=== PATIENT | male | born 1940 | race Caucasian/White ===

== ENCOUNTER 2017-08-23 06:47 | Outpatient (CLI) | payer MEDICARE | END 2017-08-23 06:48 | disposition home or self-care (01) | LOC: BICRAD 06:47 | PROVIDERS: ATTEND Family Medicine | DX: R06.00 Dyspnea, unspecified (principal) | CPT/HCPCS: 71046 ==

== ENCOUNTER 2018-11-12 12:56 | Outpatient (CLI) | payer MEDICARE ==
[~2018-11-12 12:56] MED LIST: ISOVUE-370 76%-LOCM 1 ML ONE
--- NOTE | 2018-11-12 14:15 | CT ---
CT ABDOMEN AND PELVIS WITH IV CONTRAST 11/12/2018 CLINICAL INFORMATION: Hematuria, bladder cancer. COMPARISON: CT abdomen and pelvis on 12/07/2011. Technique: Multiple contiguous axial CT images are obtained through the abdomen and pelvis with IV contrast. Cor onal reformatted images are provided. FINDINGS: Lower Chest: Tubular areas of increased density are seen in the right middle lobe posteriorly and lat erally which may be related to areas of mucus plugging. There are adjacent small reticulonodular densities suggesting infectious/inflammatory process. There are chronic bibasilar lung changes also p resent with increased interstitial densities noted. Vessels: Vascular calcifications are seen in the abdominal aorta and involving the iliac arteries. Abdomen: Portal vein:Patent Gallbladder: Few calcified lesions are seen in the gallbladder discovered bladder wall which may repr esent tiny gallbladder calculi; although, one of a calcification is may actually be related to tiny calcification within the wall of the gallbladder. Liver: within normal limits. Spleen: within normal limits. Pancreas: within normal limits. Adrenals: within normal limits. Kidneys: There are 2 exophytic fluid density cystic lesions involving the midportion and inferior candida e left kidney measuring 2.5 cm and 2.3 cm respectively compatible with cysts. A subcentimeter too small to characterize hypodense lesion is seen in the superior pole right kidney. A punctate calcific ation is seen in the left renal hilum which is thought to represent a vascular calcification as opposed to a renal calculus. No additional renal or ureteral calculi are seen bilaterally, and there is no evidence of hydronephrosis. Bowel: Normal caliber. Appendix: A tiny appendicolith is seen, but the appendix is normal in caliber without periappendiceal inflammatory changes Peritoneum: No ascites or free air; no fluid collection. Mesentery and Retroperitoneum: No enlarged mesenteric or retroperitoneal lymph nodes. Abdominal Wall: Tiny fat-containing umbilical hernia is present. Pelvis: Reproductive Organs: No pelvic masses. Pelvis within normal limits. Bladder: Incompletely distended but does demonstrate a normal CT appearance. No obvious mass or filli ng defect is appreciated within the urinary bladder on CT evaluation. Bones: A remote compression fracture of the L5 vertebral body is seen. Is also a remote compression f racture of the superior endplate of the T10 vertebral body stable when compared to study in 2012. Degenerative changes are again seen in the lumbar spine with stable area of increased density seen in the right superior endplate of the L2 vertebral body likely related to a bone island. IMPRESSION: 1. No acute findings are seen in the abdomen or pelvis. 2. Left renal cysts with 2 small to characterize hypodense lesion right kidney statistically also lik [place] representing a cyst.. 3. No renal or ureteral calculi are seen bilaterally, and there is no evidence of hydronephrosis. 4. Urinary bladder is incomplete distended but does demonstrate a grossly normal appearance on this e xamination. 5. Stable compression fractures involving the T10 and L5 vertebral bodies. 6. Stable sclerotic lesion L2 vertebral body likely due to a prominent bone island. No additional lyt ic or sclerotic osseous lesions are seen. 7. Cholelithiasis. 8. Probable areas of mucous plugging within the right middle lobe with adjacent reticulonodular densi ties which may related to associated infectious or inflammatory process.
== END 2018-11-12 12:57 | disposition home or self-care (01) ==
LOC: BICCT 12:56
PROVIDERS: ATTEND Urology
DX: C67.9 Malignant neoplasm of bladder, unspecified (principal); R31.9 Hematuria, unspecified; N28.1 Cyst of kidney, acquired; K80.20 Calculus of gallbladder without cholecystitis without obstruction; N32.89 Other specified disorders of bladder; R93.422 Abnormal radiologic findings on diagnostic imaging of left kidney; M89.9 Disorder of bone, unspecified; S22.079A Unspecified fracture of T9-T10 vertebra, initial encounter for closed fracture; S32.059A Unspecified fracture of fifth lumbar vertebra, initial encounter for closed fracture
CPT/HCPCS: 74178; Q9966

== ENCOUNTER 2019-01-09 08:54 | Outpatient (CLI) | payer MEDICARE ==
--- NOTE | 2019-01-09 12:58 | CT ---
CT CHEST WITH IV CONTRAST: HISTORY: Mucus plugging. Abnormal chest finding on CT abdomen. COMPARISON: CT abdomen from 11/12/2018. FINDINGS: Lungs are diffusely hyperinflated with scattered moderate bullae, predominantly peripherally and more prominent in the left upper lobes. Mild dependent bibasilar atelectasis with scattered areas of mil d peripheral scarring. No dominant parenchymal mass. No pleural fluid or pneumothorax. Within the lateral aspect of the right middle lobe, the area of abnormality on recent CT is again dem onstrated. Mild ground-glass opacity surrounds tiny multinodular focus. No enlarged lymph nodes within the mediastinum. There is calcifications throughout the arterial stru ctures. Findings of the upper abdomen are better detailed on recent CT abdomen exam. IMPRESSION: 1. Small multinodular parenchymal opacity with surrounding ground-glass density in the lateral segme nt right middle lobe. Most likely related to recurrent or old inflammatory process. Please consider followup CT chest in 9-12 months to evaluate for stability/resolution rather than any progression. 2. Atherosclerosis. 3. Emphysema. POS: [facility]
[2019-01-09] MEDS ORDERED: ISOVUE-370 76%-LOCM 1 ML ONE (16:12)
== END 2019-01-09 08:55 | disposition home or self-care (01) ==
LOC: BICCT 08:54
PROVIDERS: ATTEND Family Medicine
DX: R93.5 Abnormal findings on diagnostic imaging of other abdominal regions, including retroperitoneum (principal); J98.4 Other disorders of lung; J43.9 Emphysema, unspecified; I70.90 Unspecified atherosclerosis; R91.8 Other nonspecific abnormal finding of lung field
CPT/HCPCS: 71260; 82565; Q9966

== ENCOUNTER 2021-06-24 02:10 | Inpatient (IN) | payer OTHER, MEDICARE ==
[2021-06-24] MEDS ORDERED: Morphine 4 MG/ML VIAL ONE ×2 (03:05→09:37)
[2021-06-24] MEDS ORDERED: Ondansetron PF 4 MG/2 ML Vial ONE ×2 (03:05→10:30)
[2021-06-24] MEDS ORDERED: Dextrose 5% in Water 1,000 ML IV PRN ×2 (03:21→03:40)
[2021-06-24] MEDS ORDERED: hydrALAZINE 20 MG/ML VIAL SLOW IVP PRN (03:21)
[2021-06-24] MEDS ORDERED: Dextrose 50% Abboject 50 ML SYRINGE SLOW IVP PRN ×2 (03:21→03:40)
[2021-06-24] MEDS ORDERED: Acetaminophen 325 MG TAB PO PRN (03:21)
[2021-06-24] MEDS ORDERED: Ondansetron PF 4 MG/2 ML Vial IVP PRN ×2 (03:21→12:01)
[2021-06-24] MEDS ORDERED: Ibuprofen 200 MG TAB PO PRN (03:27)
[2021-06-24] MEDS ORDERED: Morphine 4 MG/ML VIAL SLOW IVP PRN (03:29)
[2021-06-24] MEDS ORDERED: Sodium Chloride 0.9% 1,000 ML IV SCH ×2 (03:30→18:00)
[2021-06-24 03:56] LABS: #Lymphocytes 1.9 thou/uL (1.20-3.40); #Monocytes 1.3 thou/uL (0.11-0.59); #Neutrophils 12.6 thou/uL (1.40-6.50); %Basophils 0.1 % (0.0-1.0); %Eosinophils 0.2 % (0.0-10.0); %Lymphocytes 11.7 % (21.0-51.0); %Monocytes 8.2 % (0.0-10.0); %Neutrophils 79.8 % (42.0-75.0); Hemoglobin 12.9 g/dL (14.0-18.0); Mean Corpuscular HGB CONC 34.5 g/dL (32.0-36.0); Mean Corpuscular Hemoglobin 31.9 pg (27.0-31.0); Mean Corpuscular Volume 92.6 fL (78.0-98.0); Mean Platelet Volume 8.2 fL (7.4-10.4); Platelet Count 160 thou/uL (130-400); RBC Distribution Width 12.8 % (11.5-14.5); Red Blood Cell (RBC) Count 4.05 mill/uL (4.70-6.10); White Blood Cell (WBC) Count 15.8 thou/uL (4.8-10.8)
[2021-06-24 04:09] LABS: INR-International Normal Ratio 1.1; PTT 32.6 sec (22.9-36.1); Prothrombin Time 14.1 sec (12.0-14.7)
[2021-06-24 04:20] LABS: ALT (SGPT) 34 U/L (8-55); AST (SGOT) 24 U/L (5-34); Albumin 3.8 g/dL (3.4-4.8); Alkaline Phosphatase 50 U/L (40-110); Anion Gap 16 mmol/L (10-20); BUN (Urea Nitrogen) 24 mg/dL (8.4-25.7); Bilirubin, Total 1.3 mg/dL (0.2-1.2); Calc. Creatinine Clearance 0 mL/min (70-130); Carbon Dioxide 20 mmol/L (23-31); Chloride 105 mmol/L (98-107); Globulin 2.8 g/dL (2.4-3.5); Glucose 251 mg/dL (83-110); Potassium 4.3 mmol/L (3.5-5.1); Protein, Total 6.6 g/dL (5.8-8.1); Sodium 137 mmol/L (136-145)
[2021-06-24 05:44] LABS: SARS-CoV-2 NAA Rapid Test Not Detected (NotDetected)
[2021-06-24] MEDS ORDERED: Acetaminophen 500 MG TAB PO SCH (06:00)
[2021-06-24] MEDS: Acetaminophen/Codeine 30-300mg Tablet PO SCH ×4 (06:12→23:04)
[2021-06-24] MEDS: HumaLOG 300 UNITS/3 ML VIAL SC PRN ×3 (06:12→21:44)
[2021-06-24] MEDS: Acetaminophen 325 MG TAB PO SCH ×4 (06:38→21:42)
[2021-06-24 07:21] VITALS: BMI 23.6
[2021-06-24] MEDS ORDERED: ceFAZolin 2 GM/Dextrose 50 ML 2 GM in Premix Bag 1 BAG IVPB SCH (07:30)
[2021-06-24 09:18] LABS: Hemoglobin A1c 7.4 % (4.0-6.0)
[2021-06-24] MEDS: Polyethylene Glycol 3350 17 GM Packet PO SCH (09:38)
[2021-06-24] MEDS: Senokot S 8.6-50 MG TAB PO SCH ×2 (09:39→21:42)
[2021-06-24] MEDS ORDERED: Midazolam HCl 2 mg/2 ml Vial ONE (09:53)
[2021-06-24] MEDS ORDERED: ceFAZolin 2 GM/Dextrose 50 ML IVPB ONE (10:23)
[2021-06-24] MEDS ORDERED: Bupivacaine HCl 0.5%/Epinephrine 1:200,000/PF 30 ml Vial ONE (10:27)
[2021-06-24] MEDS ORDERED: Rocuronium Bromide 10 MG/ML (10ML VIAL) ONE (10:30)
[2021-06-24] MEDS ORDERED: Glycopyrrolate 0.2 MG/ML 5 ML SYRINGE ONE (10:30)
[2021-06-24] MEDS ORDERED: ePHEDrine 50 MG/ML VIAL ONE (10:30)
[2021-06-24] MEDS ORDERED: PROPOFOL 200 MG/20 ML VIAL ONE (10:30)
[2021-06-24] MEDS ORDERED: Lidocaine 1% PF 5 ML VIAL ONE (10:30)
[2021-06-24] MEDS ORDERED: Esmolol 100 MG/10 ML VIAL ONE (10:30)
[2021-06-24] MEDS ORDERED: traMADol HCl 50 MG TAB PO PRN (12:01)
[2021-06-24] MEDS ORDERED: Zolpidem Tartrate 5 MG TAB PO PRN (12:01)
[2021-06-24] MEDS ORDERED: Promethazine HCl 25 MG/ML VIAL IM PRN (12:01)
[2021-06-24] MEDS ORDERED: ROPIVACAINE 0.2% NERVE BLCK SCH (12:15)
[2021-06-24] MEDS ORDERED: PUMP NERVE BLCK SCH (12:15)
[2021-06-24] MEDS: ceFAZolin 2 GM/Dextrose 50 ML 2 GM in Premix Bag 1 BAG IVPB SCH ×2 (13:13→21:51)
[2021-06-24] MEDS ORDERED: glipiZIDE 10 MG TAB PO SCH (17:45)
[2021-06-24] MEDS ORDERED: Ketorolac Tromethamine 30 MG/ML VIAL IVP PRN (17:54)
[2021-06-24] MEDS ORDERED: Ketorolac Tromethamine 30 MG/ML VIAL IVP SCH (18:00)
[2021-06-24] MEDS ORDERED: Lantus 1000 UNITS/10 ML VIAL SC SCH (21:00)
[2021-06-24] MEDS: Tamsulosin HCl 0.4 MG CAP PO SCH (21:42)
[2021-06-24] MEDS: Fenofibrate Nanocrystallized 145 MG TAB PO SCH (21:42)
[2021-06-24] MEDS: Atorvastatin Calcium 10 MG TAB PO SCH (21:42)
[2021-06-25] MEDS: Acetaminophen 325 MG TAB PO SCH ×4 (03:03→20:47)
[2021-06-25 05:18] LABS: #Eosinphils 0.1 thou/uL (0.0-0.7); #Lymphocytes 1.7 thou/uL (1.20-3.40); #Monocytes 1.7 thou/uL (0.11-0.59); #Neutrophils 12.3 thou/uL (1.40-6.50); %Basophils 0.2 % (0.0-1.0); %Eosinophils 0.6 % (0.0-10.0); %Lymphocytes 10.9 % (21.0-51.0); %Monocytes 10.7 % (0.0-10.0); %Neutrophils 77.6 % (42.0-75.0); Hemoglobin 10.5 g/dL (14.0-18.0); Mean Corpuscular HGB CONC 33.6 g/dL (32.0-36.0); Mean Corpuscular Hemoglobin 31.6 pg (27.0-31.0); Platelet Count 124 thou/uL (130-400); RBC Distribution Width 12.9 % (11.5-14.5); Red Blood Cell (RBC) Count 3.33 mill/uL (4.70-6.10); White Blood Cell (WBC) Count 15.8 thou/uL (4.8-10.8)
[2021-06-25] MEDS: HumaLOG 300 UNITS/3 ML VIAL SC PRN ×5 (05:34→20:48)
[2021-06-25] MEDS: Acetaminophen/Codeine 30-300mg Tablet PO SCH ×4 (05:34→23:41)
[2021-06-25 05:39] LABS: Anion Gap 10 mmol/L (10-20); BUN (Urea Nitrogen) 27 mg/dL (8.4-25.7); Calc. Creatinine Clearance 48 mL/min (70-130); Calcium 8.4 mg/dL (7.8-10.44); Carbon Dioxide 24 mmol/L (23-31); Chloride 103 mmol/L (98-107); Glucose 207 mg/dL (83-110); Magnesium 1.9 mg/dL (1.6-2.6)
[2021-06-25 05:41] LABS: Sodium 133 mmol/L (136-145)
[2021-06-25] MEDS: glipiZIDE 10 MG TAB PO SCH ×2 (06:50→15:48)
[2021-06-25] MEDS: Polyethylene Glycol 3350 17 GM Packet PO SCH (08:03)
[2021-06-25] MEDS: Senokot S 8.6-50 MG TAB PO SCH ×2 (08:03→20:05)
[2021-06-25] MEDS: Sodium Chloride 0.9% 500 ML IV SCH ×2 (08:03→09:57)
[2021-06-25] MEDS: Aspirin 81 mg Enteric Coated Tablet PO SCH ×2 (08:03→20:04)
[2021-06-25] MEDS: Lisinopril 10 MG TAB PO SCH ×3 (08:03→14:32)
[2021-06-25] MEDS: Lantus 1000 UNITS/10 ML VIAL SC SCH ×2 (08:04→20:05)
[2021-06-25] MEDS ORDERED: Lantus 1000 UNITS/10 ML VIAL SC SCH (09:00)
[2021-06-25] MEDS ORDERED: Famotidine 20 MG TAB PO SCH (15:00)
[2021-06-25] MEDS: Cyclobenzaprine 10 MG TAB PO PRN (15:52)
[2021-06-25] MEDS: Fenofibrate Nanocrystallized 145 MG TAB PO SCH (20:04)
[2021-06-25] MEDS: Tamsulosin HCl 0.4 MG CAP PO SCH (20:04)
[2021-06-25] MEDS: Atorvastatin Calcium 10 MG TAB PO SCH (20:05)
[2021-06-26] MEDS: Acetaminophen 325 MG TAB PO SCH ×3 (03:40→17:04)
[2021-06-26] MEDS: Acetaminophen/Codeine 30-300mg Tablet PO SCH ×3 (05:29→17:39)
[2021-06-26] MEDS: HumaLOG 300 UNITS/3 ML VIAL SC PRN ×3 (06:15→17:39)
[2021-06-26] MEDS: glipiZIDE 10 MG TAB PO SCH ×2 (06:41→17:03)
[2021-06-26] MEDS: Ibuprofen 200 MG TAB PO PRN ×2 (08:58→20:12)
[2021-06-26] MEDS: Cyclobenzaprine 10 MG TAB PO PRN (08:59)
[2021-06-26] MEDS: Senokot S 8.6-50 MG TAB PO SCH ×2 (09:01→20:14)
[2021-06-26] MEDS: Lisinopril 10 MG TAB PO SCH (09:01)
[2021-06-26] MEDS: Polyethylene Glycol 3350 17 GM Packet PO SCH (09:02)
[2021-06-26] MEDS: Lantus 1000 UNITS/10 ML VIAL SC SCH ×2 (09:16→20:17)
[2021-06-26] MEDS: Aspirin 81 mg Enteric Coated Tablet PO SCH ×2 (09:25→20:12)
[2021-06-26 10:07] LABS: Anion Gap 10 mmol/L (10-20); BUN (Urea Nitrogen) 20 mg/dL (8.4-25.7); Calc. Creatinine Clearance 64 mL/min (70-130); Calcium 8.2 mg/dL (7.8-10.44); Carbon Dioxide 19 mmol/L (23-31); Chloride 105 mmol/L (98-107); Glucose 195 mg/dL (83-110); Magnesium 1.9 mg/dL (1.6-2.6); Phosphorus 2.3 mg/dL (2.3-4.7); Potassium 4.2 mmol/L (3.5-5.1); Sodium 130 mmol/L (136-145)
[2021-06-26] MEDS ORDERED: Sodium Phosphate 30 MMOL in Sodium Chloride 0.9% 250 ML 250 ML IVPB SCH (10:30)
[2021-06-26] MEDS: Famotidine 20 MG TAB PO SCH (20:08)
[2021-06-26] MEDS: Atorvastatin Calcium 10 MG TAB PO SCH (20:12)
[2021-06-26] MEDS: cloNIDine 0.1 MG TAB PO SCH (20:12)
[2021-06-26] MEDS: Tamsulosin HCl 0.4 MG CAP PO SCH (20:14)
[2021-06-26] MEDS: Fenofibrate Nanocrystallized 145 MG TAB PO SCH (20:16)
[2021-06-27] MEDS: Acetaminophen/Codeine 30-300mg Tablet PO SCH ×5 (01:28→23:25)
[2021-06-27] MEDS: Acetaminophen 325 MG TAB PO SCH ×5 (01:28→23:24)
[2021-06-27] MEDS: cloNIDine 0.1 MG TAB PO SCH ×3 (05:41→18:05)
[2021-06-27] MEDS: Aspirin 81 mg Enteric Coated Tablet PO SCH ×2 (07:52→23:15)
[2021-06-27] MEDS: Lisinopril 10 MG TAB PO SCH (07:52)
[2021-06-27] MEDS: Famotidine 20 MG TAB PO SCH ×2 (07:52→23:15)
[2021-06-27] MEDS: Senokot S 8.6-50 MG TAB PO SCH ×2 (07:52→23:15)
[2021-06-27] MEDS: glipiZIDE 10 MG TAB PO SCH ×2 (07:52→16:26)
[2021-06-27] MEDS: Polyethylene Glycol 3350 17 GM Packet PO SCH (08:36)
[2021-06-27] MEDS: HumaLOG 300 UNITS/3 ML VIAL SC PRN ×2 (11:13→16:28)
[2021-06-27] MEDS: Fenofibrate Nanocrystallized 145 MG TAB PO SCH (23:15)
[2021-06-27] MEDS: Lantus 1000 UNITS/10 ML VIAL SC SCH (23:16)
[2021-06-27] MEDS: Tamsulosin HCl 0.4 MG CAP PO SCH (23:16)
[2021-06-27] MEDS: Atorvastatin Calcium 10 MG TAB PO SCH (23:16)
[2021-06-28] MEDS: cloNIDine 0.1 MG TAB PO SCH ×2 (04:10→12:00)
[2021-06-28] MEDS: Acetaminophen/Codeine 30-300mg Tablet PO SCH ×2 (05:11→12:01)
[2021-06-28] MEDS: Acetaminophen 325 MG TAB PO SCH ×2 (05:11→12:01)
[2021-06-28] MEDS: HumaLOG 300 UNITS/3 ML VIAL SC PRN ×2 (06:02→12:00)
[2021-06-28] MEDS: Aspirin 81 mg Enteric Coated Tablet PO SCH (08:15)
[2021-06-28] MEDS: Senokot S 8.6-50 MG TAB PO SCH (08:15)
[2021-06-28] MEDS: Lisinopril 10 MG TAB PO SCH (08:15)
[2021-06-28] MEDS: Polyethylene Glycol 3350 17 GM Packet PO SCH (08:16)
[2021-06-28] MEDS: glipiZIDE 10 MG TAB PO SCH (08:16)
[2021-06-28] MEDS: Famotidine 20 MG TAB PO SCH (08:16)
[2021-06-28] MEDS ORDERED: Lidocaine 5% Patch TD SCH (09:00)
[2021-06-28 12:02] VITALS: BP 138/51
[2021-06-28 12:06] VITALS: TEMP 98
[2021-06-28] MEDS ORDERED: Gabapentin 300 MG CAP PO SCH (15:00)
[2021-06-28] MEDS ORDERED: Transdermal Patch Removal TOP SCH (21:00)
== END 2021-06-28 12:35 | DRG 522 ==
LOC: ERS 02:10 → SJJU 03:16
PROVIDERS: ADMIT Specialist; ATTEND Specialist
PROC: 0SRR0JA Replacement of Right Hip Joint, Femoral Surface with Synthetic Substitute, Uncemented, Open Approach (ICD-10-PCS; principal; 2021-06-24)
PROC: 0PSCXZZ Reposition Right Humeral Head, External Approach (ICD-10-PCS; 2021-06-24)
DX: S72.001A Fracture of unspecified part of neck of right femur, initial encounter for closed fracture (principal); S42.201A Unspecified fracture of upper end of right humerus, initial encounter for closed fracture; E11.22 Type 2 diabetes mellitus with diabetic chronic kidney disease; N18.2 Chronic kidney disease, stage 2 (mild); Z20.822 Contact with and (suspected) exposure to COVID-19; W00.0XXA Fall on same level due to ice and snow, initial encounter; R33.9 Retention of urine, unspecified; Z79.82 Long term (current) use of aspirin; Z87.891 Personal history of nicotine dependence; I12.9 Hypertensive chronic kidney disease with stage 1 through stage 4 chronic kidney disease, or unspecified chronic kidney disease; E78.00 Pure hypercholesterolemia, unspecified; E78.5 Hyperlipidemia, unspecified
CPT/HCPCS: 36415; 36416; 71045; 72170; 76000; 80048; 80053; 80061; 83036; 83735; 84100; 85025; 85610; 85730; 86850; 86900; 86901; 93005; 96374; 96375; C1713; C1776; J0690; J1815; J1885; J2250; J2270; J2405; J2704; J3490; J7030; J7050; U0002

== ENCOUNTER 2021-07-13 17:55 | Inpatient (IN) | payer MEDICARE ==
[~2021-07-13 17:55] MED LIST changes: -ISOVUE-370 76%-LOCM 1 ML ONE; +Iopamidol 370 76% 100 ML VIAL ONE
[2021-07-13 18:25] LABS: #Lymphocytes 0.4 thou/uL (1.20-3.40); #Monocytes 1.7 thou/uL (0.11-0.59); #Neutrophils 13.6 thou/uL (1.40-6.50); %Basophils 0.1 % (0.0-1.0); %Eosinophils 0.1 % (0.0-10.0); %Lymphocytes 2.4 % (21.0-51.0); %Monocytes 10.8 % (0.0-10.0); %Neutrophils 86.6 % (42.0-75.0); Hemoglobin 8.8 g/dL (14.0-18.0); Mean Corpuscular HGB CONC 33.9 g/dL (32.0-36.0); Mean Corpuscular Hemoglobin 30.9 pg (27.0-31.0); Mean Corpuscular Volume 91.3 fL (78.0-98.0); Platelet Count 277 thou/uL (130-400); RBC Distribution Width 13.1 % (11.5-14.5); Red Blood Cell (RBC) Count 2.84 mill/uL (4.70-6.10); White Blood Cell (WBC) Count 15.7 thou/uL (4.8-10.8)
[2021-07-13 18:36] LABS: INR-International Normal Ratio 1.3; PTT 37.8 sec (22.9-36.1)
[2021-07-13 18:51] LABS: ALT (SGPT) 22 U/L (8-55); AST (SGOT) 17 U/L (5-34); Albumin 3.1 g/dL (3.4-4.8); Alkaline Phosphatase 110 U/L (40-110); Anion Gap 14 mmol/L (10-20); BUN (Urea Nitrogen) 27 mg/dL (8.4-25.7); Bilirubin, Total 0.7 mg/dL (0.2-1.2); Calc. Creatinine Clearance 0 mL/min (70-130); Calcium 8.4 mg/dL (7.8-10.44); Carbon Dioxide 20 mmol/L (23-31); Chloride 103 mmol/L (98-107); Globulin 3.3 g/dL (2.4-3.5); Glucose 220 mg/dL (83-110); Potassium 4.5 mmol/L (3.5-5.1); Protein, Total 6.4 g/dL (5.8-8.1); Sodium 132 mmol/L (136-145)
[2021-07-13] MEDS ORDERED: Cefepime 2 GM VIAL ONE (20:29)
[2021-07-13] MEDS ORDERED: Vancomycin HCl 500 MG VIAL ONE (20:37)
[2021-07-13] MEDS ORDERED: Vancomycin 1 GM/200 ML BAG ONE (20:37)
[2021-07-13] MEDS ORDERED: Vancomycin 1.5 GRAM/300 ML BAG 1.5 GM in Premix Bag 1 BAG IVPB SCH (20:45)
[2021-07-13 20:48] LABS: Bacteria/HPF 4+ HPF (None Seen); Bilirubin Negative (Negative); Blood, Urine 1+ (Negative); Clarity Turbid (Clear); Glucose, Urine (Dipstick) Normal (Negative); Ketone, Urine Negative (Negative); Leukocyte 500 Leu/uL (Negative); Nitrite 1+ (Negative); Protein, Urine (Dipstick) 50 mg/dL (Neg-Trace); Specific Gravity, Urine 1.028 (1.002-1.036); Squamous Epithelial None Seen HPF (0-3); Urobilinogen Normal mg/dL (Less than 2); WBC/HPF Greater than 50 HPF (0-3); pH, Urine 5.5 (5.0-9.0)
[2021-07-13] MEDS ORDERED: Fentanyl 100 MCG/2 ML VIAL ONE (21:48)
[2021-07-13 22:18] LABS: SARS-CoV-2 NAA Rapid Test Not Detected (NotDetected)
[2021-07-13] MEDS ORDERED: hydrALAZINE 20 MG/ML VIAL SLOW IVP PRN (23:03)
[2021-07-13] MEDS ORDERED: Dextrose 5% in Water 1,000 ML IV PRN (23:04)
[2021-07-13] MEDS ORDERED: Dextrose 50% Abboject 50 ML SYRINGE SLOW IVP PRN (23:04)
[2021-07-13] MEDS ORDERED: HumaLOG 300 UNITS/3 ML VIAL SC PRN (23:04)
[2021-07-13] MEDS ORDERED: HYDROcodone/Acetaminophen 5/325 mg Tablet PO PRN (23:05)
[2021-07-13] MEDS ORDERED: Ondansetron ODT 4 MG TAB PO PRN (23:05)
[2021-07-13] MEDS ORDERED: Cyclobenzaprine 10 MG TAB PO PRN (23:07)
[2021-07-13] MEDS ORDERED: Sodium Chloride 0.9% 1,000 ML IV SCH (23:15)
[2021-07-13] MEDS ORDERED: Enoxaparin Sodium 40 MG/0.4 ML SYRINGE SC SCH (23:15)
[2021-07-13] MEDS ORDERED: Electrolyte Replacement Protocol 1 EACH FS PRN (23:15)
[2021-07-13 23:27] VITALS: BMI 24.3
[2021-07-13 23:28] LABS: CKMB 0.3 ng/mL (0-6.6)
[2021-07-13] MEDS: Acetaminophen 325 MG TAB PO SCH (23:43)
[2021-07-14 01:59] LABS: Critical Call Chem Troponin I 2NO.AL; Troponin I 0.738 ng/mL (< 0.028)
[2021-07-14 04:51] LABS: Anion Gap 14 mmol/L (10-20); BUN (Urea Nitrogen) 23 mg/dL (8.4-25.7); Calc. Creatinine Clearance 58 mL/min (70-130); Calcium 8.2 mg/dL (7.8-10.44); Carbon Dioxide 17 mmol/L (23-31); Chloride 107 mmol/L (98-107); Glucose 186 mg/dL (83-110); Potassium 4.6 mmol/L (3.5-5.1); Sodium 133 mmol/L (136-145)
[2021-07-14 04:57] LABS: Hemoglobin A1c 7.4 % (4.0-6.0)
[2021-07-14 05:10] LABS: Band 4 % (5-11); Hemoglobin 8.1 g/dL (14.0-18.0); Hypochromia SLIGHT = 6-15 cells (100X) (0-5/hpf); Lymphocytes 7 % (21-51); MDiff Complete? YES; Mean Corpuscular HGB CONC 33.4 g/dL (32.0-36.0); Mean Corpuscular Hemoglobin 30.8 pg (27.0-31.0); Mean Corpuscular Volume 91.9 fL (78.0-98.0); Mean Platelet Volume 7.5 fL (7.4-10.4); Monocytes 7 % (0-10); Neutrophil 82 % (42-75); Platelet Count 230 thou/uL (130-400); Platelet Morphology Comment Appears Adequate; RBC Distribution Width 13.3 % (11.5-14.5); Red Blood Cell (RBC) Count 2.64 mill/uL (4.70-6.10); White Blood Cell (WBC) Count 23.8 thou/uL (4.8-10.8)
[2021-07-14] MEDS: Acetaminophen 325 MG TAB PO SCH ×4 (05:22→23:29)
[2021-07-14] MEDS: HumaLOG 300 UNITS/3 ML VIAL SC PRN ×3 (05:22→17:27)
[2021-07-14 06:02] LABS: Critical Call Chem Troponin I 2N0.AL; Troponin I 1.696 ng/mL (< 0.028)
[2021-07-14 07:29] LABS: Troponin I 2.979 ng/mL (< 0.028)
[2021-07-14] MEDS ORDERED: Enoxaparin Sodium 60 MG/0.6 ML SYRINGE SC SCH (09:00)
[2021-07-14] MEDS ORDERED: Enoxaparin Sodium 40 MG/0.4 ML SYRINGE SC SCH (09:00)
[2021-07-14] MEDS ORDERED: Vancomycin HCl 750 MG in Sodium Chloride 0.9% 250 ML 250 ML IVPB SCH (09:00)
[2021-07-14] MEDS ORDERED: Aspirin 81 mg Enteric Coated Tablet PO SCH (09:00)
[2021-07-14] MEDS ORDERED: sitaGLIPtin Phosphate 25 MG TAB PO SCH (09:00)
[2021-07-14 09:12] LABS: Iron Less than 8 ug/dL (65-175); Iron Binding Capacity, Total 183 mcg/dL (261-462)
[2021-07-14] MEDS: Enoxaparin Sodium 100 MG/ML SYRINGE SC SCH ×2 (09:20→20:54)
[2021-07-14] MEDS: Cefepime 1 GM in Sodium Chloride 0.9% 100 ML IVPB SCH ×2 (09:24→20:54)
[2021-07-14] MEDS: Pantoprazole 40 MG VIAL IVP SCH (09:25)
[2021-07-14] MEDS: Aspirin 81 mg Enteric Coated Tablet PO SCH ×2 (09:26→20:54)
[2021-07-14] MEDS: Famotidine 20 MG TAB PO SCH ×2 (09:27→20:54)
[2021-07-14] MEDS: Lisinopril 10 MG TAB PO SCH (09:28)
[2021-07-14] MEDS: glipiZIDE 5 MG TAB PO SCH (09:30)
[2021-07-14] MEDS: Senokot S 8.6-50 MG TAB PO SCH ×2 (09:31→20:55)
[2021-07-14] MEDS: Alogliptin 6.25 MG TAB PO SCH (09:31)
[2021-07-14] MEDS: Lidocaine 5% Patch TD SCH (09:32)
[2021-07-14] MEDS: Gabapentin 300 MG CAP PO SCH ×3 (09:32→20:55)
[2021-07-14] MEDS ORDERED: Vancomycin 1 GM in Premix Bag 1 BAG IVPB SCH (10:00)
[2021-07-14] MEDS: Polyethylene Glycol 3350 17 GM Packet PO SCH ×2 (10:04→10:05)
[2021-07-14] MEDS: Atorvastatin Calcium 10 MG TAB PO SCH (20:54)
[2021-07-14] MEDS: Fenofibrate Nanocrystallized 145 MG TAB PO SCH (20:55)
[2021-07-14] MEDS: Tamsulosin HCl 0.4 MG CAP PO SCH (20:55)
[2021-07-15] MEDS: HumaLOG 300 UNITS/3 ML VIAL SC PRN ×2 (04:09→12:28)
[2021-07-15 04:24] LABS: #Eosinphils 0.1 thou/uL (0.0-0.7); #Lymphocytes 1.3 thou/uL (1.20-3.40); #Monocytes 1.1 thou/uL (0.11-0.59); %Basophils 0.1 % (0.0-1.0); %Eosinophils 0.4 % (0.0-10.0); %Lymphocytes 9.1 % (21.0-51.0); %Monocytes 7.6 % (0.0-10.0); %Neutrophils 82.7 % (42.0-75.0); Hemoglobin 8.1 g/dL (14.0-18.0); Mean Corpuscular HGB CONC 33.5 g/dL (32.0-36.0); Mean Corpuscular Hemoglobin 30.8 pg (27.0-31.0); Mean Corpuscular Volume 91.9 fL (78.0-98.0); Mean Platelet Volume 7.2 fL (7.4-10.4); Platelet Count 215 thou/uL (130-400); RBC Distribution Width 13.3 % (11.5-14.5); Red Blood Cell (RBC) Count 2.64 mill/uL (4.70-6.10); White Blood Cell (WBC) Count 14.5 thou/uL (4.8-10.8)
[2021-07-15 04:50] LABS: Anion Gap 10 mmol/L (10-20); BUN (Urea Nitrogen) 19 mg/dL (8.4-25.7); Calc. Creatinine Clearance 69 mL/min (70-130); Calcium 8.2 mg/dL (7.8-10.44); Carbon Dioxide 22 mmol/L (23-31); Chloride 104 mmol/L (98-107); Glucose 276 mg/dL (83-110); Potassium 3.7 mmol/L (3.5-5.1); Sodium 132 mmol/L (136-145)
[2021-07-15] MEDS: Acetaminophen 325 MG TAB PO SCH ×3 (05:09→20:20)
[2021-07-15 08:44] LABS: Vancomycin, Trough 6.7 ug/mL
[2021-07-15] MEDS: Senokot S 8.6-50 MG TAB PO SCH ×2 (09:43→20:20)
[2021-07-15] MEDS: Alogliptin 6.25 MG TAB PO SCH (09:44)
[2021-07-15] MEDS: glipiZIDE 5 MG TAB PO SCH (09:44)
[2021-07-15] MEDS: Aspirin 81 mg Enteric Coated Tablet PO SCH ×2 (09:44→20:19)
[2021-07-15] MEDS: Gabapentin 300 MG CAP PO SCH ×3 (09:44→20:18)
[2021-07-15] MEDS: Enoxaparin Sodium 40 MG/0.4 ML SYRINGE SC SCH (09:45)
[2021-07-15] MEDS: Lisinopril 10 MG TAB PO SCH (09:45)
[2021-07-15] MEDS: Famotidine 20 MG TAB PO SCH ×2 (09:45→20:19)
[2021-07-15] MEDS: Cefepime 1 GM in Sodium Chloride 0.9% 100 ML IVPB SCH ×2 (09:46→20:18)
[2021-07-15] MEDS: Lidocaine 5% Patch TD SCH (09:46)
[2021-07-15] MEDS: Pantoprazole 40 MG VIAL IVP SCH (09:46)
[2021-07-15] MEDS: Polyethylene Glycol 3350 17 GM Packet PO SCH (09:46)
[2021-07-15] MEDS ORDERED: cefTRIAXone Sodium 2 MG in Syringe 0 ML IVPB SCH (11:45)
[2021-07-15] MEDS: cefTRIAXone\\ROCEPHIN 2 GM in Sodium Chloride 0.9% 100 ML IVPB SCH (12:27)
[2021-07-15] MEDS: Fenofibrate Nanocrystallized 145 MG TAB PO SCH (20:19)
[2021-07-15] MEDS: Atorvastatin Calcium 10 MG TAB PO SCH (20:20)
[2021-07-15] MEDS: Tamsulosin HCl 0.4 MG CAP PO SCH (20:20)
[2021-07-15] MEDS: Transdermal Patch Removal TOP SCH (20:30)
[2021-07-15] MEDS: Iron, Sodium Ferric Gluconate 250 MG in Sodium Chloride 0.9% 250 ML 250 ML IVPB SCH (20:54)
[2021-07-16] MEDS: Acetaminophen 325 MG TAB PO SCH ×4 (01:31→17:53)
[2021-07-16] MEDS: HumaLOG 300 UNITS/3 ML VIAL SC PRN ×2 (05:07→11:15)
[2021-07-16 07:48] LABS: #Eosinphils 0.1 thou/uL (0.0-0.7); #Lymphocytes 1.2 thou/uL (1.20-3.40); #Monocytes 0.9 thou/uL (0.11-0.59); #Neutrophils 6.3 thou/uL (1.40-6.50); %Basophils 0.2 % (0.0-1.0); %Lymphocytes 14.5 % (21.0-51.0); %Monocytes 10.8 % (0.0-10.0); %Neutrophils 73.5 % (42.0-75.0); Hemoglobin 8.2 g/dL (14.0-18.0); Mean Corpuscular HGB CONC 33.2 g/dL (32.0-36.0); Mean Corpuscular Hemoglobin 30.4 pg (27.0-31.0); Mean Corpuscular Volume 91.6 fL (78.0-98.0); Mean Platelet Volume 7.6 fL (7.4-10.4); Platelet Count 188 thou/uL (130-400); RBC Distribution Width 13.1 % (11.5-14.5); Red Blood Cell (RBC) Count 2.69 mill/uL (4.70-6.10); White Blood Cell (WBC) Count 8.6 thou/uL (4.8-10.8)
[2021-07-16 08:03] LABS: Anion Gap 11 mmol/L (10-20); BUN (Urea Nitrogen) 12 mg/dL (8.4-25.7); Calc. Creatinine Clearance 95 mL/min (70-130); Carbon Dioxide 21 mmol/L (23-31); Chloride 107 mmol/L (98-107); Glucose 171 mg/dL (83-110); Potassium 3.5 mmol/L (3.5-5.1); Sodium 135 mmol/L (136-145)
[2021-07-16] MEDS ORDERED: Potassium Chloride 20 MEQ TAB PO SCH (08:30)
[2021-07-16] MEDS: Alogliptin 6.25 MG TAB PO SCH (08:51)
[2021-07-16] MEDS: glipiZIDE 5 MG TAB PO SCH (08:51)
[2021-07-16] MEDS: Senokot S 8.6-50 MG TAB PO SCH ×2 (08:51→21:47)
[2021-07-16] MEDS: Gabapentin 300 MG CAP PO SCH ×3 (08:51→21:43)
[2021-07-16] MEDS: Lidocaine 5% Patch TD SCH (08:52)
[2021-07-16] MEDS: Aspirin 81 mg Enteric Coated Tablet PO SCH ×2 (08:52→21:43)
[2021-07-16] MEDS: Famotidine 20 MG TAB PO SCH ×2 (08:52→21:44)
[2021-07-16] MEDS: Lisinopril 10 MG TAB PO SCH (08:52)
[2021-07-16] MEDS: Enoxaparin Sodium 40 MG/0.4 ML SYRINGE SC SCH (08:52)
[2021-07-16] MEDS: Polyethylene Glycol 3350 17 GM Packet PO SCH (08:52)
[2021-07-16] MEDS: Pantoprazole 40 MG VIAL IVP SCH (08:52)
[2021-07-16] MEDS: Cefepime 1 GM in Sodium Chloride 0.9% 100 ML IVPB SCH (08:52)
[2021-07-16] MEDS: Iron, Sodium Ferric Gluconate 250 MG in Sodium Chloride 0.9% 250 ML 250 ML IVPB SCH (10:56)
[2021-07-16] MEDS ORDERED: cefTRIAXone\\ROCEPHIN 2 GM in Sodium Chloride 0.9% 100 ML IVPB SCH (13:00)
[2021-07-16] MEDS: cefTRIAXone\\ROCEPHIN 2 GM in Sodium Chloride 0.9% 100 ML IVPB SCH (13:17)
[2021-07-16] MEDS: Ciprofloxacin 500 MG TAB PO SCH (21:42)
[2021-07-16] MEDS: Fenofibrate Nanocrystallized 145 MG TAB PO SCH (21:44)
[2021-07-16] MEDS: Atorvastatin Calcium 10 MG TAB PO SCH (21:45)
[2021-07-16] MEDS: Tamsulosin HCl 0.4 MG CAP PO SCH (21:47)
[2021-07-16] MEDS: Transdermal Patch Removal TOP SCH (21:48)
[2021-07-17] MEDS: Acetaminophen 325 MG TAB PO SCH ×4 (00:24→17:23)
[2021-07-17 04:41] LABS: #Eosinphils 0.2 thou/uL (0.0-0.7); #Lymphocytes 1.7 thou/uL (1.20-3.40); #Monocytes 0.7 thou/uL (0.11-0.59); #Neutrophils 4.3 thou/uL (1.40-6.50); %Basophils 0.3 % (0.0-1.0); %Eosinophils 2.7 % (0.0-10.0); %Lymphocytes 24.5 % (21.0-51.0); %Monocytes 9.9 % (0.0-10.0); %Neutrophils 62.6 % (42.0-75.0); Hemoglobin 8.4 g/dL (14.0-18.0); Mean Corpuscular HGB CONC 32.2 g/dL (32.0-36.0); Mean Corpuscular Hemoglobin 29.6 pg (27.0-31.0); Mean Corpuscular Volume 92.1 fL (78.0-98.0); Mean Platelet Volume 7.7 fL (7.4-10.4); Platelet Count 204 thou/uL (130-400); RBC Distribution Width 13.1 % (11.5-14.5); Red Blood Cell (RBC) Count 2.83 mill/uL (4.70-6.10); White Blood Cell (WBC) Count 6.8 thou/uL (4.8-10.8)
[2021-07-17 05:10] LABS: Anion Gap 9 mmol/L (10-20); BUN (Urea Nitrogen) 10 mg/dL (8.4-25.7); Calc. Creatinine Clearance 88 mL/min (70-130); Calcium 8.4 mg/dL (7.8-10.44); Carbon Dioxide 26 mmol/L (23-31); Chloride 105 mmol/L (98-107); Glucose 138 mg/dL (83-110); Sodium 136 mmol/L (136-145)
[2021-07-17] MEDS: Ciprofloxacin 500 MG TAB PO SCH ×2 (05:57→20:55)
[2021-07-17] MEDS: glipiZIDE 5 MG TAB PO SCH (08:52)
[2021-07-17] MEDS: Alogliptin 6.25 MG TAB PO SCH (08:52)
[2021-07-17] MEDS: Lisinopril 10 MG TAB PO SCH (08:52)
[2021-07-17] MEDS: Gabapentin 300 MG CAP PO SCH ×3 (08:52→20:56)
[2021-07-17] MEDS: Famotidine 20 MG TAB PO SCH ×2 (08:52→20:55)
[2021-07-17] MEDS: Senokot S 8.6-50 MG TAB PO SCH ×2 (08:52→20:55)
[2021-07-17] MEDS: Aspirin 81 mg Enteric Coated Tablet PO SCH ×2 (08:52→20:55)
[2021-07-17] MEDS: Polyethylene Glycol 3350 17 GM Packet PO SCH (08:53)
[2021-07-17] MEDS: Lidocaine 5% Patch TD SCH (08:53)
[2021-07-17] MEDS: Pantoprazole 40 MG VIAL IVP SCH (08:53)
[2021-07-17] MEDS: Enoxaparin Sodium 40 MG/0.4 ML SYRINGE SC SCH (08:53)
[2021-07-17] MEDS: Tamsulosin HCl 0.4 MG CAP PO SCH (20:55)
[2021-07-17] MEDS: Atorvastatin Calcium 10 MG TAB PO SCH (20:55)
[2021-07-17] MEDS: Fenofibrate Nanocrystallized 145 MG TAB PO SCH (20:55)
[2021-07-17] MEDS: Transdermal Patch Removal TOP SCH (20:57)
[2021-07-18] MEDS: Acetaminophen 325 MG TAB PO SCH ×3 (00:58→12:09)
[2021-07-18] MEDS: Ciprofloxacin 500 MG TAB PO SCH (06:39)
[2021-07-18] MEDS: glipiZIDE 5 MG TAB PO SCH (08:31)
[2021-07-18] MEDS: Lidocaine 5% Patch TD SCH (08:31)
[2021-07-18] MEDS: Aspirin 81 mg Enteric Coated Tablet PO SCH (08:32)
[2021-07-18] MEDS: Senokot S 8.6-50 MG TAB PO SCH (08:32)
[2021-07-18] MEDS: Lisinopril 10 MG TAB PO SCH (08:32)
[2021-07-18] MEDS: Gabapentin 300 MG CAP PO SCH (08:32)
[2021-07-18] MEDS: Pantoprazole 40 MG VIAL IVP SCH (08:32)
[2021-07-18] MEDS: Alogliptin 6.25 MG TAB PO SCH (08:32)
[2021-07-18] MEDS: Famotidine 20 MG TAB PO SCH (08:33)
[2021-07-18] MEDS: Polyethylene Glycol 3350 17 GM Packet PO SCH (08:36)
[2021-07-18] MEDS: Enoxaparin Sodium 40 MG/0.4 ML SYRINGE SC SCH (09:43)
[2021-07-18 12:46] VITALS: TEMP 98.5
[2021-07-18 16:13] VITALS: BP 129/64
== END 2021-07-18 15:30 | disposition home or self-care (01) | DRG 871 ==
LOC: ERS 17:55 → 2NO 22:14
PROVIDERS: ADMIT Internal Medicine; ATTEND Internal Medicine
DX: A41.51 Sepsis due to Escherichia coli [E. coli] (principal); I21.A1 Myocardial infarction type 2; E87.1 Hypo-osmolality and hyponatremia; Z23 Encounter for immunization; Z20.822 Contact with and (suspected) exposure to COVID-19; E86.0 Dehydration; L89.152 Pressure ulcer of sacral region, stage 2; N18.2 Chronic kidney disease, stage 2 (mild); E11.22 Type 2 diabetes mellitus with diabetic chronic kidney disease; I12.9 Hypertensive chronic kidney disease with stage 1 through stage 4 chronic kidney disease, or unspecified chronic kidney disease; E78.5 Hyperlipidemia, unspecified; D50.9 Iron deficiency anemia, unspecified; N40.0 Benign prostatic hyperplasia without lower urinary tract symptoms; Z96.641 Presence of right artificial hip joint; Z79.82 Long term (current) use of aspirin; Z79.899 Other long term (current) drug therapy; Z79.84 Long term (current) use of oral hypoglycemic drugs; Z98.42 Cataract extraction status, left eye; Z98.41 Cataract extraction status, right eye
CPT/HCPCS: 36415; 36416; 51702; 71045; 74177; 80048; 80053; 80202; 81003; 81015; 82274; 82553; 83036; 83540; 83550; 83605; 84443; 84484; 85025; 85610; 85730; 87040; 87077; 87086; 87149; 87186; 94760; 96365; 96366; 96367; 96375; C9113; J0692; J0696; J1650; J1815; J2916; J3010; J3370; J3490; J7050; Q9967

== ENCOUNTER 2021-08-18 15:45 | Inpatient (IN) | payer MEDICARE ==
[2021-08-18 16:35] LABS: #Lymphocytes 1.3 thou/uL (1.20-3.40); #Monocytes 1.1 thou/uL (0.11-0.59); #Neutrophils 9.9 thou/uL (1.40-6.50); %Basophils 0.2 % (0.0-1.0); %Eosinophils 0.2 % (0.0-10.0); %Lymphocytes 10.2 % (21.0-51.0); %Monocytes 9.1 % (0.0-10.0); %Neutrophils 80.3 % (42.0-75.0); Mean Corpuscular HGB CONC 32.4 g/dL (32.0-36.0); Mean Corpuscular Hemoglobin 29.6 pg (27.0-31.0); Mean Corpuscular Volume 91.2 fL (78.0-98.0); Mean Platelet Volume 8.4 fL (7.4-10.4); Platelet Count 192 thou/uL (130-400); RBC Distribution Width 15.6 % (11.5-14.5); Red Blood Cell (RBC) Count 4.38 mill/uL (4.70-6.10); White Blood Cell (WBC) Count 12.4 thou/uL (4.8-10.8)
[2021-08-18 16:58] LABS: Lipase 44 U/L (8-78)
[2021-08-18 16:59] LABS: ALT (SGPT) 20 U/L (8-55); AST (SGOT) 17 U/L (5-34); Albumin 4.1 g/dL (3.4-4.8); Alkaline Phosphatase 110 U/L (40-110); Anion Gap 15 mmol/L (10-20); BUN (Urea Nitrogen) 23 mg/dL (8.4-25.7); Calc. Creatinine Clearance 0 mL/min (70-130); Calcium 9.2 mg/dL (7.8-10.44); Carbon Dioxide 23 mmol/L (23-31); Chloride 103 mmol/L (98-107); Globulin 2.7 g/dL (2.4-3.5); Glucose 318 mg/dL (83-110); Magnesium 1.9 mg/dL (1.6-2.6); Protein, Total 6.8 g/dL (5.8-8.1); Sodium 137 mmol/L (136-145)
[2021-08-18] MEDS ORDERED: Vancomycin 1.5 GRAM/300 ML BAG 1.5 GM in Premix Bag 1 BAG IVPB SCH (17:00)
[2021-08-18 17:20] LABS: CKMB 1.4 ng/mL (0-6.6)
[2021-08-18 17:40] LABS: Bacteria/HPF None Seen HPF (None Seen); Bilirubin Negative (Negative); Blood, Urine 1+ (Negative); Clarity Clear (Clear); Glucose, Urine (Dipstick) Greater than 1000 mg/dL (Negative); Ketone, Urine 10 mg/dL (Negative); Leukocyte Negative Leu/uL (Negative); Nitrite Negative (Negative); Protein, Urine (Dipstick) 70 mg/dL (Neg-Trace); RBC/HPF 0-3 HPF (0-3); Specific Gravity, Urine 1.023 (1.002-1.036); Squamous Epithelial None Seen HPF (0-3); Urobilinogen Normal mg/dL (Less than 2); WBC/HPF 0-3 HPF (0-3); pH, Urine 5.5 (5.0-9.0)
[2021-08-18 17:46] LABS: Amphetamine Not Detected (NotDetected); Barbiturates Screen Not Detected (NotDetected); Benzodiazepine Screen Not Detected (NotDetected); Cocaine Metabolite Screen Not Detected (NotDetected); Methadone Not Detected (NotDetected); Methamphetamine Not Detected (NotDetected); Opiate Screen Detected (NotDetected); Oxycodone Screen Not Detected (NotDetected); Phencyclidine (PCP) Not Detected (NotDetected); THC/Cannabinoid Screen Detected (NotDetected); Tricyclic Screen Not Detected (NotDetected)
[2021-08-18] MEDS ORDERED: Cefepime 2 GM VIAL ONE (18:01)
[2021-08-18] MEDS ORDERED: Ondansetron PF 4 MG/2 ML Vial IVP PRN (19:35)
[2021-08-18] MEDS ORDERED: Bisacodyl 5 MG TAB PO PRN (19:35)
[2021-08-18] MEDS ORDERED: Senokot S 8.6-50 MG TAB PO PRN (19:35)
[2021-08-18] MEDS ORDERED: Acetaminophen 650 MG Suppository PR PRN (19:35)
[2021-08-18] MEDS ORDERED: Non-Formulary Item 1 EACH (Multivitamin [Multi-Vitamin Daily] 1 TABLET Tablet) PO SCH (20:05)
[2021-08-18] MEDS ORDERED: Ferrous Sulfate 325 MG TAB PO SCH (20:06)
[2021-08-18] MEDS ORDERED: Dextrose 5% in Water 1,000 ML IV PRN (20:33)
[2021-08-18] MEDS ORDERED: Dextrose 50% Abboject 50 ML SYRINGE SLOW IVP PRN (20:33)
[2021-08-18] MEDS ORDERED: HumaLOG 300 UNITS/3 ML VIAL SC PRN (20:33)
[2021-08-18 20:55] LABS: CKMB 1.6 ng/mL (0-6.6)
[2021-08-18] MEDS ORDERED: Polyethylene Glycol 3350 17 GM Packet PO SCH (21:00)
[2021-08-18 21:39] VITALS: BMI 20.1
[2021-08-18] MEDS: Sodium Chloride 0.9% 1,000 ML IV SCH (22:40)
[2021-08-18] MEDS: Atorvastatin Calcium 10 MG TAB PO SCH (22:40)
[2021-08-18] MEDS: Fenofibrate Nanocrystallized 145 MG TAB PO SCH (22:41)
[2021-08-18] MEDS: Tamsulosin HCl 0.4 MG CAP PO SCH (22:41)
[2021-08-19 04:10] LABS: #Eosinphils 0.1 thou/uL (0.0-0.7); #Lymphocytes 2.4 thou/uL (1.20-3.40); #Monocytes 1.2 thou/uL (0.11-0.59); #Neutrophils 12.4 thou/uL (1.40-6.50); %Basophils 0.2 % (0.0-1.0); %Eosinophils 0.3 % (0.0-10.0); %Lymphocytes 14.9 % (21.0-51.0); %Monocytes 7.7 % (0.0-10.0); %Neutrophils 76.9 % (42.0-75.0); Hemoglobin 11.4 g/dL (14.0-18.0); Mean Corpuscular HGB CONC 33.5 g/dL (32.0-36.0); Mean Corpuscular Hemoglobin 31.3 pg (27.0-31.0); Mean Corpuscular Volume 93.5 fL (78.0-98.0); Mean Platelet Volume 8.4 fL (7.4-10.4); Platelet Count 151 thou/uL (130-400); RBC Distribution Width 15.5 % (11.5-14.5); Red Blood Cell (RBC) Count 3.64 mill/uL (4.70-6.10); White Blood Cell (WBC) Count 16.1 thou/uL (4.8-10.8)
[2021-08-19] MEDS: Cefepime 2 GM in Sodium Chloride 0.9% 100 ML IVPB SCH ×2 (04:41→17:02)
[2021-08-19 04:45] LABS: ALT (SGPT) 16 U/L (8-55); AST (SGOT) 14 U/L (5-34); Albumin 3.4 g/dL (3.4-4.8); Alkaline Phosphatase 92 U/L (40-110); Anion Gap 12 mmol/L (10-20); BUN (Urea Nitrogen) 16 mg/dL (8.4-25.7); Calc. Creatinine Clearance 65 mL/min (70-130); Calcium 8.8 mg/dL (7.8-10.44); Carbon Dioxide 23 mmol/L (23-31); Chloride 107 mmol/L (98-107); Globulin 2.7 g/dL (2.4-3.5); Glucose 186 mg/dL (83-110); Iron 32 ug/dL (65-175); Iron Binding Capacity, Total 201 mcg/dL (261-462); Iron Binding Capacity, Total 203 mcg/dL (261-462); Potassium 3.7 mmol/L (3.5-5.1); Protein, Total 6.1 g/dL (5.8-8.1); Sodium 138 mmol/L (136-145)
[2021-08-19] MEDS: HumaLOG 300 UNITS/3 ML VIAL SC PRN ×3 (05:22→16:40)
[2021-08-19] MEDS: Polyethylene Glycol 3350 17 GM Packet PO SCH (10:04)
[2021-08-19 12:16] LABS: SARS-CoV-2 PCR by NAA Not Detected (NotDetected)
[2021-08-19] MEDS: Sodium Chloride 0.9% 1,000 ML IV SCH (16:39)
[2021-08-19] MEDS ORDERED: Vancomycin 1.5 GRAM/300 ML BAG 1.5 GM in Premix Bag 1 BAG IVPB SCH (18:00)
[2021-08-19] MEDS: Docusate 100 MG CAP PO SCH (21:08)
[2021-08-19] MEDS: Atorvastatin Calcium 10 MG TAB PO SCH (21:08)
[2021-08-19] MEDS: Tamsulosin HCl 0.4 MG CAP PO SCH (21:09)
[2021-08-19] MEDS: Lisinopril 10 MG TAB PO SCH (21:09)
[2021-08-19] MEDS: Fenofibrate Nanocrystallized 145 MG TAB PO SCH (21:09)
[2021-08-20 03:53] LABS: #Eosinphils 0.1 thou/uL (0.0-0.7); #Lymphocytes 2.2 thou/uL (1.20-3.40); #Monocytes 0.6 thou/uL (0.11-0.59); %Basophils 0.4 % (0.0-1.0); %Eosinophils 0.7 % (0.0-10.0); %Lymphocytes 22.2 % (21.0-51.0); %Monocytes 6.3 % (0.0-10.0); %Neutrophils 70.5 % (42.0-75.0); Hemoglobin 11.1 g/dL (14.0-18.0); Mean Corpuscular HGB CONC 33.4 g/dL (32.0-36.0); Mean Corpuscular Hemoglobin 30.7 pg (27.0-31.0); Mean Platelet Volume 8.3 fL (7.4-10.4); Platelet Count 135 thou/uL (130-400); RBC Distribution Width 15.3 % (11.5-14.5); Red Blood Cell (RBC) Count 3.61 mill/uL (4.70-6.10); White Blood Cell (WBC) Count 9.9 thou/uL (4.8-10.8)
[2021-08-20 04:11] LABS: Anion Gap 12 mmol/L (10-20); BUN (Urea Nitrogen) 10 mg/dL (8.4-25.7); Calc. Creatinine Clearance 77 mL/min (70-130); Calcium 8.5 mg/dL (7.8-10.44); Carbon Dioxide 21 mmol/L (23-31); Chloride 103 mmol/L (98-107); Glucose 182 mg/dL (83-110); Sodium 133 mmol/L (136-145)
[2021-08-20] MEDS: Cefepime 2 GM in Sodium Chloride 0.9% 100 ML IVPB SCH (05:25)
[2021-08-20] MEDS: HumaLOG 300 UNITS/3 ML VIAL SC PRN ×3 (06:43→16:48)
[2021-08-20] MEDS: hydrALAZINE 20 MG/ML VIAL SLOW IVP PRN (06:47)
[2021-08-20] MEDS ORDERED: Electrolyte Replacement Protocol 1 EACH FS SCH (07:00)
[2021-08-20] MEDS ORDERED: Potassium Chloride 20 MEQ TAB PO SCH (08:00)
[2021-08-20] MEDS: Ferrous Gluconate 324 MG TAB PO SCH (09:03)
[2021-08-20] MEDS: Polyethylene Glycol 3350 17 GM Packet PO SCH (09:03)
[2021-08-20] MEDS: Enoxaparin Sodium 40 MG/0.4 ML SYRINGE SC SCH (09:03)
[2021-08-20] MEDS: Docusate 100 MG CAP PO SCH ×2 (09:03→21:04)
[2021-08-20] MEDS: Ascorbic Acid 500 mg Chewable Tablet PO SCH (09:03)
[2021-08-20] MEDS: Sodium Chloride 0.9% 1,000 ML IV SCH (12:28)
[2021-08-20 17:37] LABS: Vancomycin, Trough 6.6 ug/mL
[2021-08-20] MEDS: Lisinopril 10 MG TAB PO SCH (21:03)
[2021-08-20] MEDS: Metoprolol Tartrate 25 MG TAB PO SCH (21:04)
[2021-08-20] MEDS: Aspirin 81 mg Enteric Coated Tablet PO SCH (21:04)
[2021-08-20] MEDS: Atorvastatin Calcium 10 MG TAB PO SCH (21:04)
[2021-08-20] MEDS: Tamsulosin HCl 0.4 MG CAP PO SCH (21:05)
[2021-08-20] MEDS: Fenofibrate Nanocrystallized 145 MG TAB PO SCH (21:05)
[2021-08-21 03:51] LABS: #Eosinphils 0.1 thou/uL (0.0-0.7); #Lymphocytes 1.7 thou/uL (1.20-3.40); #Monocytes 0.6 thou/uL (0.11-0.59); #Neutrophils 4.6 thou/uL (1.40-6.50); %Basophils 0.3 % (0.0-1.0); %Eosinophils 1.5 % (0.0-10.0); %Lymphocytes 24.7 % (21.0-51.0); %Monocytes 8.1 % (0.0-10.0); %Neutrophils 65.4 % (42.0-75.0); Hemoglobin 11.2 g/dL (14.0-18.0); Mean Corpuscular HGB CONC 32.3 g/dL (32.0-36.0); Mean Corpuscular Hemoglobin 29.5 pg (27.0-31.0); Mean Corpuscular Volume 91.3 fL (78.0-98.0); Mean Platelet Volume 8.4 fL (7.4-10.4); Platelet Count 149 thou/uL (130-400); RBC Distribution Width 15.1 % (11.5-14.5); Red Blood Cell (RBC) Count 3.81 mill/uL (4.70-6.10)
[2021-08-21 04:17] LABS: Anion Gap 11 mmol/L (10-20); BUN (Urea Nitrogen) 10 mg/dL (8.4-25.7); Calc. Creatinine Clearance 72 mL/min (70-130); Calcium 8.8 mg/dL (7.8-10.44); Carbon Dioxide 24 mmol/L (23-31); Chloride 101 mmol/L (98-107); Glucose 195 mg/dL (83-110); Potassium 3.1 mmol/L (3.5-5.1); Sodium 133 mmol/L (136-145)
[2021-08-21] MEDS: HumaLOG 300 UNITS/3 ML VIAL SC PRN ×3 (05:51→16:58)
[2021-08-21] MEDS ORDERED: Potassium Chloride 20 MEQ TAB PO SCH (07:00)
[2021-08-21] MEDS ORDERED: FLU VACC QS2021-22(65YR UP)/PF 240 MCG/0.7 ML SYRINGE IM ONE (09:00)
[2021-08-21] MEDS: Ascorbic Acid 500 mg Chewable Tablet PO SCH (09:04)
[2021-08-21] MEDS: Aspirin 81 mg Enteric Coated Tablet PO SCH ×2 (09:04→21:14)
[2021-08-21] MEDS: Ferrous Gluconate 324 MG TAB PO SCH (09:04)
[2021-08-21] MEDS: Metoprolol Tartrate 25 MG TAB PO SCH ×2 (09:05→21:14)
[2021-08-21] MEDS: Docusate 100 MG CAP PO SCH ×2 (09:05→21:14)
[2021-08-21] MEDS: Enoxaparin Sodium 40 MG/0.4 ML SYRINGE SC SCH (09:06)
[2021-08-21] MEDS: Polyethylene Glycol 3350 17 GM Packet PO SCH (09:07)
[2021-08-21] MEDS ORDERED: Metoprolol Tartrate 25 MG TAB PO SCH (09:30)
[2021-08-21 10:31] LABS: Magnesium 1.7 mg/dL (1.6-2.6)
[2021-08-21] MEDS ORDERED: Magnesium 2 GM/50 ML(in water) 2 GM in Premix Bag 1 BAG IVPB SCH (12:00)
[2021-08-21] MEDS: Acetaminophen 325 MG TAB PO PRN ×2 (15:20→22:54)
[2021-08-21] MEDS: hydrALAZINE 20 MG/ML VIAL SLOW IVP PRN (15:21)
[2021-08-21] MEDS: Tamsulosin HCl 0.4 MG CAP PO SCH (21:14)
[2021-08-21] MEDS: Atorvastatin Calcium 10 MG TAB PO SCH (21:14)
[2021-08-21] MEDS: Lisinopril 10 MG TAB PO SCH (21:14)
[2021-08-21] MEDS: Fenofibrate Nanocrystallized 145 MG TAB PO SCH (21:16)
[2021-08-22 04:22] LABS: #Eosinphils 0.1 thou/uL (0.0-0.7); #Lymphocytes 1.4 thou/uL (1.20-3.40); #Monocytes 0.5 thou/uL (0.11-0.59); #Neutrophils 4.6 thou/uL (1.40-6.50); %Basophils 0.2 % (0.0-1.0); %Eosinophils 2.1 % (0.0-10.0); %Lymphocytes 21.5 % (21.0-51.0); %Monocytes 7.1 % (0.0-10.0); %Neutrophils 69.2 % (42.0-75.0); Hemoglobin 11.8 g/dL (14.0-18.0); Mean Corpuscular HGB CONC 33.3 g/dL (32.0-36.0); Mean Corpuscular Hemoglobin 30.2 pg (27.0-31.0); Mean Corpuscular Volume 90.9 fL (78.0-98.0); Mean Platelet Volume 8.6 fL (7.4-10.4); Platelet Count 160 thou/uL (130-400); RBC Distribution Width 15.4 % (11.5-14.5); Red Blood Cell (RBC) Count 3.91 mill/uL (4.70-6.10); White Blood Cell (WBC) Count 6.7 thou/uL (4.8-10.8)
[2021-08-22 04:42] LABS: Anion Gap 13 mmol/L (10-20); BUN (Urea Nitrogen) 13 mg/dL (8.4-25.7); Calc. Creatinine Clearance 68 mL/min (70-130); Calcium 8.8 mg/dL (7.8-10.44); Carbon Dioxide 22 mmol/L (23-31); Chloride 101 mmol/L (98-107); Glucose 182 mg/dL (83-110); Potassium 3.2 mmol/L (3.5-5.1); Sodium 133 mmol/L (136-145)
[2021-08-22] MEDS: HumaLOG 300 UNITS/3 ML VIAL SC PRN ×2 (06:00→10:58)
[2021-08-22] MEDS ORDERED: Potassium Chloride 20 MEQ TAB PO SCH (07:00)
[2021-08-22] MEDS: Enoxaparin Sodium 40 MG/0.4 ML SYRINGE SC SCH (09:28)
[2021-08-22] MEDS: Aspirin 81 mg Enteric Coated Tablet PO SCH ×2 (09:28→21:50)
[2021-08-22] MEDS: Docusate 100 MG CAP PO SCH ×2 (09:28→21:50)
[2021-08-22] MEDS: glipiZIDE 5 MG TAB PO SCH ×2 (09:29→16:12)
[2021-08-22] MEDS: Ascorbic Acid 500 mg Chewable Tablet PO SCH (09:30)
[2021-08-22] MEDS: Ferrous Gluconate 324 MG TAB PO SCH (09:30)
[2021-08-22] MEDS: Polyethylene Glycol 3350 17 GM Packet PO SCH (09:30)
[2021-08-22] MEDS: Metoprolol Tartrate 25 MG TAB PO SCH ×2 (09:30→21:50)
[2021-08-22] MEDS: Acetaminophen 325 MG TAB PO PRN (14:27)
[2021-08-22] MEDS: Lisinopril 10 MG TAB PO SCH (21:50)
[2021-08-22] MEDS: Fenofibrate Nanocrystallized 145 MG TAB PO SCH (21:50)
[2021-08-22] MEDS: Atorvastatin Calcium 10 MG TAB PO SCH (21:50)
[2021-08-22] MEDS: Tamsulosin HCl 0.4 MG CAP PO SCH (21:51)
[2021-08-23] MEDS: Metoprolol Tartrate 25 MG TAB PO SCH ×2 (05:42→20:08)
[2021-08-23] MEDS: Ferrous Gluconate 324 MG TAB PO SCH ×2 (06:56→08:57)
[2021-08-23] MEDS: glipiZIDE 5 MG TAB PO SCH ×3 (06:56→15:51)
[2021-08-23] MEDS: Ascorbic Acid 500 mg Chewable Tablet PO SCH ×2 (06:56→08:56)
[2021-08-23] MEDS: Aspirin 81 mg Enteric Coated Tablet PO SCH ×2 (06:57→08:57)
[2021-08-23] MEDS: Docusate 100 MG CAP PO SCH ×3 (06:57→20:07)
[2021-08-23] MEDS: Polyethylene Glycol 3350 17 GM Packet PO SCH (06:57)
[2021-08-23] MEDS: Enoxaparin Sodium 40 MG/0.4 ML SYRINGE SC SCH (06:57)
[2021-08-23] MEDS ORDERED: PROPOFOL 200 MG/20 ML VIAL ONE (08:05)
[2021-08-23] MEDS ORDERED: Lidocaine 1% PF 5 ML VIAL ONE (08:05)
[2021-08-23 10:15] LABS: Anion Gap 9 mmol/L (10-20); BUN (Urea Nitrogen) 13 mg/dL (8.4-25.7); Calc. Creatinine Clearance 70 mL/min (70-130); Calcium 8.6 mg/dL (7.8-10.44); Carbon Dioxide 26 mmol/L (23-31); Chloride 102 mmol/L (98-107); Glucose 206 mg/dL (83-110); Magnesium 1.8 mg/dL (1.6-2.6); Potassium 3.2 mmol/L (3.5-5.1); Sodium 134 mmol/L (136-145)
[2021-08-23] MEDS ORDERED: Potassium Phosphate 15 MMOL in Sodium Chloride 0.9% 100 ML IVPB SCH (11:15)
[2021-08-23] MEDS ORDERED: Potassium Chloride 20 MEQ TAB PO SCH (11:15)
[2021-08-23] MEDS ORDERED: Magnesium 2 GM/50 ML(in water) 2 GM in Premix Bag 1 BAG IVPB SCH (11:15)
[2021-08-23] MEDS: Atorvastatin Calcium 10 MG TAB PO SCH (20:07)
[2021-08-23] MEDS: Fenofibrate Nanocrystallized 145 MG TAB PO SCH (20:07)
[2021-08-23] MEDS: Cyanocobalamin (Vitamin B-12) 1,000 MCG TAB PO SCH (20:07)
[2021-08-23] MEDS: Folic Acid 1 MG TAB PO SCH (20:08)
[2021-08-23] MEDS: Multivit, Therapeutic 1 TAB PO SCH (20:08)
[2021-08-23] MEDS: Lisinopril 10 MG TAB PO SCH (20:08)
[2021-08-23] MEDS: Tamsulosin HCl 0.4 MG CAP PO SCH (20:09)
[2021-08-24] MEDS: Melatonin 3 MG TAB PO PRN ×2 (00:38→21:46)
[2021-08-24] MEDS: Acetaminophen 325 MG TAB PO PRN (00:38)
[2021-08-24 05:58] LABS: #Eosinphils 0.2 thou/uL (0.0-0.7); #Lymphocytes 1.9 thou/uL (1.20-3.40); #Monocytes 0.5 thou/uL (0.11-0.59); #Neutrophils 3.2 thou/uL (1.40-6.50); %Basophils 0.4 % (0.0-1.0); %Eosinophils 3.4 % (0.0-10.0); %Lymphocytes 33.1 % (21.0-51.0); %Monocytes 8.2 % (0.0-10.0); %Neutrophils 54.9 % (42.0-75.0); Hemoglobin 11.3 g/dL (14.0-18.0); Mean Corpuscular HGB CONC 33.2 g/dL (32.0-36.0); Mean Corpuscular Hemoglobin 30.3 pg (27.0-31.0); Mean Corpuscular Volume 91.3 fL (78.0-98.0); Mean Platelet Volume 8.1 fL (7.4-10.4); Platelet Count 157 thou/uL (130-400); RBC Distribution Width 15.3 % (11.5-14.5); Red Blood Cell (RBC) Count 3.74 mill/uL (4.70-6.10); White Blood Cell (WBC) Count 5.8 thou/uL (4.8-10.8)
[2021-08-24 06:24] LABS: Anion Gap 10 mmol/L (10-20); BUN (Urea Nitrogen) 11 mg/dL (8.4-25.7); Calc. Creatinine Clearance 68 mL/min (70-130); Calcium 8.5 mg/dL (7.8-10.44); Carbon Dioxide 26 mmol/L (23-31); Chloride 103 mmol/L (98-107); Glucose 163 mg/dL (83-110); Magnesium 1.9 mg/dL (1.6-2.6); Potassium 3.3 mmol/L (3.5-5.1); Sodium 136 mmol/L (136-145)
[2021-08-24] MEDS: glipiZIDE 5 MG TAB PO SCH ×2 (06:46→16:54)
[2021-08-24] MEDS ORDERED: Magnesium 2 GM/50 ML(in water) 2 GM in Premix Bag 1 BAG IVPB SCH (07:00)
[2021-08-24] MEDS ORDERED: Potassium Chloride 20 MEQ TAB PO SCH (07:00)
[2021-08-24] MEDS: Ferrous Gluconate 324 MG TAB PO SCH (08:22)
[2021-08-24] MEDS: Enoxaparin Sodium 40 MG/0.4 ML SYRINGE SC SCH (08:23)
[2021-08-24] MEDS: Ascorbic Acid 500 mg Chewable Tablet PO SCH (08:23)
[2021-08-24] MEDS: Aspirin 81 mg Enteric Coated Tablet PO SCH (08:23)
[2021-08-24] MEDS: Docusate 100 MG CAP PO SCH ×2 (08:23→21:44)
[2021-08-24] MEDS: Polyethylene Glycol 3350 17 GM Packet PO SCH (08:24)
[2021-08-24] MEDS: Metoprolol Tartrate 25 MG TAB PO SCH ×2 (08:24→21:45)
[2021-08-24] MEDS: Saccharomyces boulardii 250 MG CAP PO SCH (08:24)
[2021-08-24 11:07] LABS: Potassium 3.4 mmol/L (3.5-5.1)
[2021-08-24] MEDS ORDERED: Magnesium Citrate 300 ML BOT PO SCH (16:30)
[2021-08-24] MEDS: Cyanocobalamin (Vitamin B-12) 1,000 MCG TAB PO SCH (21:44)
[2021-08-24] MEDS: Tamsulosin HCl 0.4 MG CAP PO SCH (21:44)
[2021-08-24] MEDS: Folic Acid 1 MG TAB PO SCH (21:44)
[2021-08-24] MEDS: Atorvastatin Calcium 10 MG TAB PO SCH (21:45)
[2021-08-24] MEDS: Multivit, Therapeutic 1 TAB PO SCH (21:45)
[2021-08-24] MEDS: Lisinopril 10 MG TAB PO SCH (21:45)
[2021-08-24] MEDS: Fenofibrate Nanocrystallized 145 MG TAB PO SCH (21:45)
[2021-08-25 06:39] LABS: Magnesium 2.1 mg/dL (1.6-2.6)
[2021-08-25] MEDS: glipiZIDE 5 MG TAB PO SCH (06:39)
[2021-08-25] MEDS: Enoxaparin Sodium 40 MG/0.4 ML SYRINGE SC SCH (08:30)
[2021-08-25] MEDS: Ferrous Gluconate 324 MG TAB PO SCH (08:30)
[2021-08-25] MEDS: Polyethylene Glycol 3350 17 GM Packet PO SCH (08:31)
[2021-08-25] MEDS: Ascorbic Acid 500 mg Chewable Tablet PO SCH (08:31)
[2021-08-25] MEDS: Aspirin 81 mg Enteric Coated Tablet PO SCH (08:31)
[2021-08-25] MEDS: Metoprolol Tartrate 25 MG TAB PO SCH (08:31)
[2021-08-25] MEDS: Saccharomyces boulardii 250 MG CAP PO SCH (08:31)
[2021-08-25] MEDS: Docusate 100 MG CAP PO SCH (08:31)
[2021-08-25 08:34] VITALS: BP 133/60; TEMP 97.6
== END 2021-08-25 12:23 | disposition home or self-care (01) | DRG 177 ==
LOC: ERS 15:45 → 2NO 18:39 → T4-B 08-22 12:52
PROVIDERS: ADMIT Internal Medicine; ATTEND Family Medicine
PROC: 0DB58ZX Excision of Esophagus, Via Natural or Artificial Opening Endoscopic, Diagnostic (ICD-10-PCS; principal; 2021-08-23)
DX: J69.0 Pneumonitis due to inhalation of food and vomit (principal); G92.8 Other toxic encephalopathy; I48.20 Chronic atrial fibrillation, unspecified; E87.1 Hypo-osmolality and hyponatremia; K22.10 Ulcer of esophagus without bleeding; Z20.822 Contact with and (suspected) exposure to COVID-19; I10 Essential (primary) hypertension; F12.10 Cannabis abuse, uncomplicated; D50.9 Iron deficiency anemia, unspecified; N40.0 Benign prostatic hyperplasia without lower urinary tract symptoms; E11.65 Type 2 diabetes mellitus with hyperglycemia; G93.89 Other specified disorders of brain; E87.6 Hypokalemia; R13.10 Dysphagia, unspecified; J15.9 Unspecified bacterial pneumonia; K21.00 Gastro-esophageal reflux disease with esophagitis, without bleeding; E83.42 Hypomagnesemia; E83.39 Other disorders of phosphorus metabolism; Z79.82 Long term (current) use of aspirin; Z79.899 Other long term (current) drug therapy; Z79.84 Long term (current) use of oral hypoglycemic drugs
CPT/HCPCS: 36415; 36416; 70450; 71045; 71046; 72125; 74220; 80048; 80053; 80202; 80306; 81003; 81015; 82010; 82140; 82274; 82550; 82553; 82728; 83036; 83540; 83550; 83605; 83690; 83735; 84100; 84484; 85025; 87040; 87086; 88305; 88312; 88313; 93005; 93306; 93880; 95712; 95819; 95957; 96365; 96366; 96367; 96368; J0360; J0692; J1650; J1815; J1956; J2704; J3370; J3475; J3490; J7050; U0003; U0005

== ENCOUNTER 2022-05-22 23:21 | Inpatient (IN) | payer MEDICARE ==
[2022-05-22 23:49] LABS: #Eosinphils 0.1 thou/uL (0.0-0.7); #Lymphocytes 3.2 thou/uL (1.20-3.40); #Neutrophils 5.8 thou/uL (1.40-6.50); %Basophils 0.3 % (0.0-1.0); %Eosinophils 1.4 % (0.0-10.0); %Lymphocytes 31.7 % (21.0-51.0); %Monocytes 9.8 % (0.0-10.0); %Neutrophils 56.9 % (42.0-75.0); Hemoglobin 15.3 g/dL (14.0-18.0); Mean Corpuscular HGB CONC 34.3 g/dL (32.0-36.0); Mean Corpuscular Hemoglobin 31.9 pg (27.0-31.0); Mean Corpuscular Volume 92.8 fl (78.0-98.0); Mean Platelet Volume 8.1 fL (7.4-10.4); Platelet Count 196 10x3/uL (130-400); Red Blood Cell (RBC) Count 4.81 mill/uL (4.70-6.10); White Blood Cell (WBC) Count 10.1 10x3/uL (4.8-10.8)
[2022-05-23 00:16] LABS: ALT (SGPT) 15 U/L (8-55); AST (SGOT) 18 U/L (5-34); Albumin 4.8 g/dL (3.4-4.8); Alkaline Phosphatase 70 U/L (40-110); Anion Gap 14 mmol/L (10-20); BUN (Urea Nitrogen) 22 mg/dL (8.4-25.7); Calc. Creatinine Clearance 0 mL/min (70-130); Calcium 9.8 mg/dL (7.8-10.44); Carbon Dioxide 23 mmol/L (23-31); Chloride 105 mmol/L (98-107); Estimated GFR 53; Globulin 3.2 g/dL (2.4-3.5); Glucose 116 mg/dL (83-110); Sodium 138 mmol/L (136-145)
[2022-05-23 00:52] LABS: INR-International Normal Ratio 1.1; PTT 45.3 sec (22.9-36.1); Prothrombin Time 14.4 sec (12.0-14.7)
[2022-05-23] MEDS ORDERED: Aspirin Chewable 81 MG TAB ONE ×2 (01:21→09:32)
[2022-05-23] MEDS ORDERED: Nitroglycerin 2% Ointment 1 INCH/1 GM Packet ONE (02:17)
[2022-05-23 02:40] LABS: SARS-CoV-2 NAA Rapid Test Not Detected (NotDetected)
[2022-05-23 02:47] LABS: Troponin I Less than 0.010 ng/mL (< 0.028)
[2022-05-23 05:53] LABS: Troponin I Less than 0.010 ng/mL (< 0.028)
[2022-05-23] MEDS ORDERED: Iopamidol-370 76% 500 ML 1 ML ONE (08:33)
[2022-05-23] MEDS ORDERED: Acetaminophen 650 MG Suppository PR PRN (08:54)
[2022-05-23] MEDS ORDERED: Acetaminophen 325 MG TAB PO PRN (08:54)
[2022-05-23] MEDS ORDERED: Dextrose 50% Abboject 50 ML SYRINGE SLOW IVP PRN (08:57)
[2022-05-23] MEDS ORDERED: Dextrose 5% in Water 1,000 ML IV PRN (08:57)
[2022-05-23] MEDS ORDERED: Insulin Regular 300 UNITS/3 ML VIAL SC PRN ×2 (08:57)
[2022-05-23 10:03] LABS: Troponin I 0.013 ng/mL (< 0.028)
[2022-05-23] MEDS: Aspirin Chewable 81 MG TAB PO SCH (10:05)
[2022-05-23] MEDS: Tamsulosin HCl 0.4 MG CAP PO SCH (10:05)
[2022-05-23 14:28] LABS: Troponin I Less than 0.010 ng/mL (< 0.028)
[2022-05-23 19:46] VITALS: BMI 20.8
[2022-05-23] MEDS ORDERED: Atorvastatin Calcium 10 MG TAB PO SCH (21:00)
[2022-05-23] MEDS ORDERED: Fenofibrate Nanocrystallized 145 MG TAB PO SCH (21:00)
[2022-05-23] MEDS: glipiZIDE 5 MG TAB PO SCH (21:35)
[2022-05-24 05:24] LABS: #Eosinphils 0.1 thou/uL (0.0-0.7); #Lymphocytes 2.4 thou/uL (1.20-3.40); #Monocytes 0.8 thou/uL (0.11-0.59); #Neutrophils 4.5 thou/uL (1.40-6.50); %Basophils 0.4 % (0.0-1.0); %Eosinophils 1.8 % (0.0-10.0); %Lymphocytes 30.1 % (21.0-51.0); %Monocytes 9.9 % (0.0-10.0); %Neutrophils 57.8 % (42.0-75.0); Hemoglobin 13.6 g/dL (14.0-18.0); Mean Corpuscular HGB CONC 34.1 g/dL (32.0-36.0); Mean Corpuscular Hemoglobin 31.7 pg (27.0-31.0); Mean Corpuscular Volume 93.1 fl (78.0-98.0); Mean Platelet Volume 8.6 fL (7.4-10.4); Platelet Count 166 10x3/uL (130-400); Red Blood Cell (RBC) Count 4.29 mill/uL (4.70-6.10); White Blood Cell (WBC) Count 7.8 10x3/uL (4.8-10.8)
[2022-05-24 05:27] LABS: Anion Gap 13 mmol/L (10-20); BUN (Urea Nitrogen) 23 mg/dL (8.4-25.7); Calc. Creatinine Clearance 57 mL/min (70-130); Calcium 9.4 mg/dL (7.8-10.44); Carbon Dioxide 20 mmol/L (23-31); Cardiac Risk 2.6 (Less than 4.5); Chloride 108 mmol/L (98-107); Cholesterol 78 mg/dl (< 200 Desired); Estimated GFR 70; Glucose 90 mg/dL (83-110); HDL Cholesterol 30 mg/dL (>60 Neg Risk); LDL Cholesterol, Calculated 34 mg/dL; Potassium 3.9 mmol/L (3.5-5.1); Sodium 137 mmol/L (136-145); Triglycerides 72 mg/dL (Less than 150)
[2022-05-24] MEDS ORDERED: Electrolyte Replacement Protocol 1 EACH FS SCH (07:15)
[2022-05-24] MEDS ORDERED: ADENOSINE 60 MG/20 ML VIAL ONE (08:20)
[2022-05-24] MEDS ORDERED: Magnesium 2 GM/50 ML(in water) 2 GM in Premix Bag 1 BAG IVPB SCH (09:00)
[2022-05-24] MEDS: Aspirin Chewable 81 MG TAB PO SCH (09:09)
[2022-05-24] MEDS: Tamsulosin HCl 0.4 MG CAP PO SCH (09:09)
[2022-05-24 11:51] VITALS: BP 155/68; TEMP 97
[2022-05-24] MEDS: glipiZIDE 5 MG TAB PO SCH (11:54)
== END 2022-05-24 16:40 | disposition home or self-care (01) | DRG 191 ==
LOC: ERS 23:21 → ERHOLD 05-23 02:15 → 2NO 05-23 15:49 → OBSVTOIN 05-24 11:23
PROVIDERS: ADMIT Student in an Organized Health Care Education/Training Program; ATTEND Internal Medicine
DX: J43.2 Centrilobular emphysema (principal); N17.9 Acute kidney failure, unspecified; Z20.822 Contact with and (suspected) exposure to COVID-19; E78.5 Hyperlipidemia, unspecified; N40.0 Benign prostatic hyperplasia without lower urinary tract symptoms; I48.91 Unspecified atrial fibrillation; I12.9 Hypertensive chronic kidney disease with stage 1 through stage 4 chronic kidney disease, or unspecified chronic kidney disease; E11.22 Type 2 diabetes mellitus with diabetic chronic kidney disease; N18.2 Chronic kidney disease, stage 2 (mild); Z79.899 Other long term (current) drug therapy; Z79.84 Long term (current) use of oral hypoglycemic drugs; Z79.82 Long term (current) use of aspirin
CPT/HCPCS: 36415; 36416; 71045; 71275; 74174; 78452; 80048; 80053; 80061; 83605; 83735; 83880; 84484; 85025; 85610; 85730; 86850; 86900; 86901; 93005; 93017; 94760; 96374; A9500; G0378; J0153; J3475; Q9967; U0002

== ENCOUNTER 2023-01-24 08:35 | Outpatient (CLI) | payer MEDICARE ==
[2023-01-24 11:47] LABS: Hematocrit 45.9 % (38.8-50.0); Hemoglobin 14.7 g/dL (13.5-17.5); Mean Corpuscular Hemoglobin 29.6 pg (27.0-33.0); Mean Corpuscular Volume 92.4 fl (81.2-95.1); Mean Platelet Volume 10.9 fl (7.4-10.4); Platelet Count 170 10x3/uL (150-450); RBC Distribution Width 14.3 % (11.5-14.5); Red Blood Cell (RBC) Count 4.97 10x6/uL (4.32-5.72); White Blood Cell (WBC) Count 8.5 10x3/uL (3.5-10.5)
[2023-01-24 12:18] LABS: Anion Gap 13 mmol/L (10-20); BUN (Urea Nitrogen) 24 mg/dL (8.4-25.7); Calc. Creatinine Clearance 0 mL/min (70-130); Calcium 9.6 mg/dL (7.8-10.44); Carbon Dioxide 25 mmol/L (23-31); Chloride 105 mmol/L (98-107); Estimated GFR 52; Glucose 139 mg/dL (83-110); Potassium 4.3 mmol/L (3.5-5.1); Sodium 139 mmol/L (136-145)
[2023-01-24 12:39] LABS: PTT 26.7 sec (22.0-33.0); Prothrombin Time 10.3 sec (9.5-12.1)
== END 2023-01-24 08:36 | disposition home or self-care (01) ==
LOC: LABBT 08:35
PROVIDERS: ATTEND Urology
DX: Z01.818 Encounter for other preprocedural examination (principal); N32.0 Bladder-neck obstruction
CPT/HCPCS: 80048; 85027; 85610; 85730; 87086; 93005; 93010

== ENCOUNTER 2023-01-29 08:33 | Inpatient (IN) | payer MEDICARE ==
[2023-01-24 09:43] VITALS: BMI 22.3
[2023-01-29] MEDS ORDERED: LevoFLOXacin 500 mg/D5W 100 ML BAG ONE (11:14)
[2023-01-29] MEDS ORDERED: fentaNYL 50 mcg/mL 1 mL Vial ONE (11:23)
[2023-01-29] MEDS ORDERED: PHENYLEPHRINE-NS 100 MCG/ML 10 ML SYRINGE ONE (11:28)
[2023-01-29] MEDS ORDERED: Ondansetron PF 4 MG/2 ML Vial ONE (11:28)
[2023-01-29] MEDS ORDERED: PROPOFOL 200 MG/20 ML VIAL ONE (11:28)
[2023-01-29] MEDS ORDERED: Lidocaine 1% PF 5 ML VIAL ONE (11:28)
[2023-01-29] MEDS ORDERED: Glycopyrrolate 0.2 MG/ML 5 ML SYRINGE ONE (11:28)
[2023-01-29] MEDS ORDERED: Famotidine/PF 20 mg/2ml Vial ONE (11:33)
[2023-01-29] MEDS ORDERED: Promethazine HCl 25 MG/ML VIAL IM PRN (12:43)
[2023-01-29] MEDS ORDERED: Acetaminophen 500 MG TAB PO PRN (12:43)
[2023-01-29] MEDS ORDERED: Ondansetron HCl/PF 4 MG/2 ML Vial IVP PRN (12:43)
[2023-01-29] MEDS ORDERED: Hyoscyamine SL 0.125 MG TAB SL PRN (12:43)
[2023-01-29] MEDS ORDERED: Docusate 100 MG CAP PO PRN (12:43)
[2023-01-29] MEDS: D5 1/2 NS w/20 mEq KCL 1,000 ML IV SCH ×2 (15:42→20:08)
[2023-01-29] MEDS ORDERED: Dextrose 5% in Water 1,000 ML IV PRN (16:17)
[2023-01-29] MEDS ORDERED: Glucagon 1 MG/ML KIT IM PRN (16:17)
[2023-01-29] MEDS ORDERED: Dextrose 50% Abboject 50 ML SYRINGE SLOW IVP PRN (16:17)
[2023-01-29] MEDS: Fenofibrate Nanocrystallized 145 MG TAB PO SCH (20:08)
[2023-01-29] MEDS: Atorvastatin Calcium 10 MG TAB PO SCH (20:08)
[2023-01-29] MEDS: Lisinopril 10 MG TAB PO SCH (20:08)
[2023-01-29] MEDS: Zolpidem Tartrate 5 MG TAB PO SCH (20:08)
[2023-01-29] MEDS: glipiZIDE 5 MG TAB PO SCH (20:08)
[2023-01-30 06:49] LABS: #Eosinphils 0.1 thou/uL (0.0-0.7); #Monocytes 0.8 thou/uL (0.11-0.59); #Neutrophils 6.1 thou/uL (1.40-6.50); %Basophils 0.3 % (0.0-1.0); %Monocytes 8.9 % (0.0-10.0); %Neutrophils 67.2 % (42.0-75.0); Hematocrit 37.7 % (42.0-52.0); Hemoglobin 12.7 g/dL (14.0-18.0); Mean Corpuscular HGB CONC 33.7 g/dL (32.0-36.0); Mean Corpuscular Hemoglobin 30.3 pg (27.0-31.0); Mean Platelet Volume 10.5 fL (7.4-10.4); Platelet Count 151 10x3/uL (130-400); RBC Distribution Width 13.8 % (11.5-14.5); Red Blood Cell (RBC) Count 4.19 mill/uL (4.70-6.10); White Blood Cell (WBC) Count 9.1 10x3/uL (4.8-10.8)
[2023-01-30 07:01] LABS: BUN (Urea Nitrogen) Less than 20 mg/dL (8.4-25.7); Glucose 100 mg/dL (83-110)
[2023-01-30 07:39] LABS: Anion Gap 13 mmol/L (10-20); Calc. Creatinine Clearance 53 mL/min (70-130); Carbon Dioxide 20 mmol/L (23-31); Chloride 108 mmol/L (98-107); Estimated GFR 60; Potassium 3.8 mmol/L (3.5-5.1); Sodium 137 mmol/L (136-145)
[2023-01-30] MEDS: Cyanocobalamin (Vitamin B-12) 1,000 MCG TAB PO SCH (08:40)
[2023-01-30] MEDS: Ferrous Gluconate 324 MG TAB PO SCH (08:40)
[2023-01-30] MEDS: glipiZIDE 5 MG TAB PO SCH ×2 (08:40→20:25)
[2023-01-30] MEDS: LevoFLOXacin 500 mg/D5W 500 MG in Premix Bag 1 BAG IVPB SCH (12:19)
[2023-01-30] MEDS: Multivit, Therapeutic 1 TAB PO SCH (12:20)
[2023-01-30] MEDS: Lisinopril 10 MG TAB PO SCH (20:26)
[2023-01-30] MEDS: Atorvastatin Calcium 10 MG TAB PO SCH (20:26)
[2023-01-30] MEDS: Zolpidem Tartrate 5 MG TAB PO SCH (20:26)
[2023-01-30] MEDS: Fenofibrate Nanocrystallized 145 MG TAB PO SCH (20:26)
[2023-01-31] MEDS ORDERED: Ondansetron PF 4 MG/2 ML Vial IVP SCH ×2 (08:30→22:00)
[2023-01-31] MEDS: glipiZIDE 5 MG TAB PO SCH ×2 (08:50→21:15)
[2023-01-31] MEDS: Ferrous Gluconate 324 MG TAB PO SCH (08:50)
[2023-01-31] MEDS: Multivit, Therapeutic 1 TAB PO SCH (08:50)
[2023-01-31] MEDS: Morphine 4 MG/ML VIAL SLOW IVP PRN ×3 (11:00→22:50)
[2023-01-31] MEDS: D5 1/2 NS w/20 mEq KCL 1,000 ML IV SCH ×3 (11:00→21:16)
[2023-01-31] MEDS ORDERED: hydrALAZINE 20 MG/ML VIAL SLOW IVP PRN (12:20)
[2023-01-31] MEDS: LevoFLOXacin 500 mg/D5W 500 MG in Premix Bag 1 BAG IVPB SCH (12:27)
[2023-01-31] MEDS: Insulin Regular 300 UNITS/3 ML VIAL SC PRN ×3 (13:39→21:18)
[2023-01-31 13:48] LABS: #Monocytes 0.6 thou/uL (0.11-0.59); #Neutrophils 10.1 thou/uL (1.40-6.50); %Basophils 0.1 % (0.0-1.0); %Eosinophils 0.1 % (0.0-10.0); %Lymphocytes 9.7 % (21.0-51.0); %Neutrophils 84.2 % (42.0-75.0); Hematocrit 45.9 % (42.0-52.0); Hemoglobin 15.6 g/dL (14.0-18.0); Mean Corpuscular Hemoglobin 30.1 pg (27.0-31.0); Mean Corpuscular Volume 88.4 fl (78.0-98.0); Mean Platelet Volume 10.8 fL (7.4-10.4); Platelet Count 157 10x3/uL (130-400); RBC Distribution Width 13.6 % (11.5-14.5); Red Blood Cell (RBC) Count 5.19 mill/uL (4.70-6.10); White Blood Cell (WBC) Count 11.9 10x3/uL (4.8-10.8)
[2023-01-31 14:14] LABS: ALT (SGPT) 36 U/L (8-55); AST (SGOT) 23 U/L (5-34); Albumin 4.4 g/dL (3.4-4.8); Alkaline Phosphatase 73 U/L (40-110); Amylase 81 U/L (20-160); Anion Gap 16 mmol/L (10-20); BUN (Urea Nitrogen) 18 mg/dL (8.4-25.7); Bilirubin, Total 0.9 mg/dL (0.2-1.2); Calc. Creatinine Clearance 57 mL/min (70-130); Calcium 9.7 mg/dL (7.8-10.44); Carbon Dioxide 23 mmol/L (23-31); Chloride 99 mmol/L (98-107); Estimated GFR 65; Globulin 3.5 g/dL (2.4-3.5); Glucose 304 mg/dL (83-110); Lipase 45 U/L (8-78); Potassium 3.7 mmol/L (3.5-5.1); Protein, Total 7.9 g/dL (5.8-8.1); Sodium 134 mmol/L (136-145)
[2023-01-31] MEDS ORDERED: Ondansetron PF 4 MG/2 ML Vial IVP PRN (14:30)
[2023-01-31] MEDS ORDERED: Simethicone Chewable 80 MG TAB PO PRN (15:02)
[2023-01-31] MEDS: Zolpidem Tartrate 5 MG TAB PO SCH (21:15)
[2023-01-31] MEDS: Lisinopril 10 MG TAB PO SCH (21:15)
[2023-01-31] MEDS: Atorvastatin Calcium 10 MG TAB PO SCH (21:16)
[2023-01-31] MEDS: Fenofibrate Nanocrystallized 145 MG TAB PO SCH (21:16)
[2023-01-31] MEDS ORDERED: Nitroglycerin 0.4 MG TAB (25 Tab Bottle) SL PRN (22:00)
[2023-01-31 23:24] LABS: Magnesium 1.8 mg/dL (1.6-2.6)
[2023-01-31 23:29] LABS: Troponin I 0.014 ng/mL (< 0.028)
[2023-02-01] MEDS: Insulin Regular 300 UNITS/3 ML VIAL SC PRN ×4 (06:05→21:24)
[2023-02-01 06:07] LABS: #Monocytes 1.7 thou/uL (0.11-0.59); #Neutrophils 17.3 thou/uL (1.40-6.50); %Basophils 0.1 % (0.0-1.0); %Lymphocytes 5.5 % (21.0-51.0); %Monocytes 8.3 % (0.0-10.0); %Neutrophils 85.4 % (42.0-75.0); Hematocrit 44.9 % (42.0-52.0); Mean Corpuscular HGB CONC 33.4 g/dL (32.0-36.0); Mean Corpuscular Hemoglobin 30.1 pg (27.0-31.0); Mean Corpuscular Volume 90.2 fl (78.0-98.0); Mean Platelet Volume 10.9 fL (7.4-10.4); Platelet Count 165 10x3/uL (130-400); RBC Distribution Width 13.9 % (11.5-14.5); Red Blood Cell (RBC) Count 4.98 mill/uL (4.70-6.10); White Blood Cell (WBC) Count 20.2 10x3/uL (4.8-10.8)
[2023-02-01 06:29] LABS: Anion Gap 13 mmol/L (10-20); BUN (Urea Nitrogen) 22 mg/dL (8.4-25.7); Calc. Creatinine Clearance 53 mL/min (70-130); Calcium 9.5 mg/dL (7.8-10.44); Carbon Dioxide 24 mmol/L (23-31); Chloride 104 mmol/L (98-107); Estimated GFR 60; Glucose 252 mg/dL (83-110); Potassium 4.1 mmol/L (3.5-5.1); Sodium 137 mmol/L (136-145)
[2023-02-01] MEDS: Ferrous Gluconate 324 MG TAB PO SCH (08:47)
[2023-02-01] MEDS: Cyanocobalamin (Vitamin B-12) 1,000 MCG TAB PO SCH (08:47)
[2023-02-01] MEDS: Multivit, Therapeutic 1 TAB PO SCH (08:47)
[2023-02-01] MEDS: glipiZIDE 5 MG TAB PO SCH ×2 (08:47→20:39)
[2023-02-01] MEDS: D5 1/2 NS w/20 mEq KCL 1,000 ML IV SCH ×2 (10:35→17:00)
[2023-02-01] MEDS: LevoFLOXacin 500 mg/D5W 500 MG in Premix Bag 1 BAG IVPB SCH (12:09)
[2023-02-01] MEDS: Morphine 4 MG/ML VIAL SLOW IVP PRN (17:41)
[2023-02-01] MEDS: Fenofibrate Nanocrystallized 145 MG TAB PO SCH (20:38)
[2023-02-01] MEDS: Lisinopril 10 MG TAB PO SCH (20:39)
[2023-02-01] MEDS: Atorvastatin Calcium 10 MG TAB PO SCH (20:39)
[2023-02-01] MEDS: Zolpidem Tartrate 5 MG TAB PO SCH (20:39)
[2023-02-02] MEDS: Morphine 4 MG/ML VIAL SLOW IVP PRN (04:36)
[2023-02-02 05:52] LABS: #Monocytes 1.6 thou/uL (0.11-0.59); %Basophils 0.1 % (0.0-1.0); %Eosinophils 0.1 % (0.0-10.0); %Lymphocytes 7.5 % (21.0-51.0); %Monocytes 7.4 % (0.0-10.0); %Neutrophils 84.2 % (42.0-75.0); Hemoglobin 13.9 g/dL (14.0-18.0); Mean Corpuscular HGB CONC 33.9 g/dL (32.0-36.0); Mean Corpuscular Hemoglobin 30.1 pg (27.0-31.0); Mean Corpuscular Volume 88.7 fl (78.0-98.0); Mean Platelet Volume 11.1 fL (7.4-10.4); Platelet Count 161 10x3/uL (130-400); Red Blood Cell (RBC) Count 4.62 mill/uL (4.70-6.10); White Blood Cell (WBC) Count 21.3 10x3/uL (4.8-10.8)
[2023-02-02 06:31] LABS: Anion Gap 13 mmol/L (10-20); BUN (Urea Nitrogen) 27 mg/dL (8.4-25.7); Calc. Creatinine Clearance 59 mL/min (70-130); Calcium 9.5 mg/dL (7.8-10.44); Carbon Dioxide 23 mmol/L (23-31); Chloride 104 mmol/L (98-107); Estimated GFR 68; Glucose 217 mg/dL (83-110); Potassium 3.8 mmol/L (3.5-5.1); Sodium 136 mmol/L (136-145)
[2023-02-02] MEDS: Insulin Regular 300 UNITS/3 ML VIAL SC PRN ×2 (06:38→12:44)
[2023-02-02] MEDS: glipiZIDE 5 MG TAB PO SCH ×2 (09:05→19:54)
[2023-02-02] MEDS: Cyanocobalamin (Vitamin B-12) 1,000 MCG TAB PO SCH (09:05)
[2023-02-02] MEDS: Ferrous Gluconate 324 MG TAB PO SCH (09:05)
[2023-02-02] MEDS: Multivit, Therapeutic 1 TAB PO SCH (09:05)
[2023-02-02] MEDS: LevoFLOXacin 500 mg/D5W 500 MG in Premix Bag 1 BAG IVPB SCH (09:08)
[2023-02-02 10:11] LABS: ALT (SGPT) 19 U/L (8-55); AST (SGOT) 12 U/L (5-34); Albumin 3.8 g/dL (3.4-4.8); Alkaline Phosphatase 64 U/L (40-110); Bilirubin, Direct 0.3 mg/dL (0.1-0.3); Bilirubin, Total 0.7 mg/dL (0.2-1.2); Protein, Total 6.8 g/dL (5.8-8.1)
[2023-02-02 10:49] LABS: Bacteria/HPF 1+ HPF (None Seen); Bilirubin Negative (Negative); Blood, Urine 3+ (Negative); CAUTI Indications for Culture Fever or rigors; Clarity Turbid (Clear); Glucose, Urine (Dipstick) 100 mg/dL (Negative); Ketone, Urine Negative (Negative); Leukocyte 75 Leu/uL (Negative); Nitrite Negative (Negative); Protein, Urine (Dipstick) 100 mg/dL (Neg-Trace); RBC/HPF Greater than 50 HPF (0-3); Specific Gravity, Urine 1.029 (1.002-1.036); Squamous Epithelial None Seen HPF (0-3); Urobilinogen Normal mg/dL (Less than 2); WBC/HPF 21-50 HPF (0-3); pH, Urine 5.5 (5.0-9.0)
[2023-02-02 10:51] LABS: Urine Culture Reflex Yes Yes
[2023-02-02] MEDS ORDERED: Neostigmine 0.5 MG in Syringe 0 ML SC SCH (12:00)
[2023-02-02] MEDS ORDERED: Lidocaine 2% Viscous Solution 20 ML, Aluminum & Magnesium Hydroxide 30 ML, Donnatal Eli... SSW SCH (14:30)
[2023-02-02] MEDS: Neostigmine 0.5 MG in Syringe 0 ML SC SCH ×2 (18:16→23:38)
[2023-02-02] MEDS: Fenofibrate Nanocrystallized 145 MG TAB PO SCH (19:53)
[2023-02-02] MEDS: Senokot S 8.6-50 MG TAB PO SCH (19:53)
[2023-02-02] MEDS: Lisinopril 10 MG TAB PO SCH (19:54)
[2023-02-02] MEDS: Atorvastatin Calcium 10 MG TAB PO SCH (19:54)
[2023-02-02] MEDS: Zolpidem Tartrate 5 MG TAB PO SCH (21:01)
[2023-02-02] MEDS: Acetaminophen 500 MG TAB PO SCH (21:01)
[2023-02-03] MEDS: Neostigmine 0.5 MG in Syringe 0 ML SC SCH ×4 (06:20→23:02)
[2023-02-03] MEDS: Acetaminophen 500 MG TAB PO SCH ×4 (06:20→20:07)
[2023-02-03] MEDS: Naloxegol 12.5 MG TAB PO SCH (06:20)
[2023-02-03 07:23] LABS: #Eosinphils 0.1 thou/uL (0.0-0.7); #Monocytes 1.3 thou/uL (0.11-0.59); %Basophils 0.1 % (0.0-1.0); %Eosinophils 0.6 % (0.0-10.0); %Lymphocytes 16.2 % (21.0-51.0); %Monocytes 9.6 % (0.0-10.0); %Neutrophils 73.1 % (42.0-75.0); Hematocrit 37.9 % (42.0-52.0); Mean Corpuscular HGB CONC 34.3 g/dL (32.0-36.0); Mean Corpuscular Hemoglobin 30.4 pg (27.0-31.0); Mean Corpuscular Volume 88.8 fl (78.0-98.0); Mean Platelet Volume 10.8 fL (7.4-10.4); Platelet Count 161 10x3/uL (130-400); RBC Distribution Width 14.1 % (11.5-14.5); Red Blood Cell (RBC) Count 4.27 mill/uL (4.70-6.10); White Blood Cell (WBC) Count 13.7 10x3/uL (4.8-10.8)
[2023-02-03 07:47] LABS: ALT (SGPT) 17 U/L (8-55); AST (SGOT) 11 U/L (5-34); Albumin 3.7 g/dL (3.4-4.8); Alkaline Phosphatase 63 U/L (40-110); Anion Gap 11 mmol/L (10-20); BUN (Urea Nitrogen) 24 mg/dL (8.4-25.7); Bilirubin, Direct 0.4 mg/dL (0.1-0.3); Bilirubin, Total 0.7 mg/dL (0.2-1.2); Calc. Creatinine Clearance 63 mL/min (70-130); Calcium 9.1 mg/dL (7.8-10.44); Carbon Dioxide 24 mmol/L (23-31); Chloride 103 mmol/L (98-107); Estimated GFR 73; Glucose 145 mg/dL (83-110); Potassium 3.7 mmol/L (3.5-5.1); Protein, Total 6.2 g/dL (5.8-8.1); Sodium 134 mmol/L (136-145)
[2023-02-03] MEDS: LevoFLOXacin 750 mg/D5W 750 MG in Premix Bag 1 BAG IVPB SCH (09:52)
[2023-02-03] MEDS: glipiZIDE 5 MG TAB PO SCH ×2 (09:56→20:06)
[2023-02-03] MEDS: Multivit, Therapeutic 1 TAB PO SCH (09:56)
[2023-02-03] MEDS: Ferrous Gluconate 324 MG TAB PO SCH (09:56)
[2023-02-03] MEDS: Cyanocobalamin (Vitamin B-12) 1,000 MCG TAB PO SCH (09:56)
[2023-02-03] MEDS: Cholecalciferol 1,000 UNITS (25 MCG) TAB PO SCH (09:56)
[2023-02-03] MEDS: Senokot S 8.6-50 MG TAB PO SCH ×2 (09:56→20:06)
[2023-02-03] MEDS: Polyethylene Glycol 3350 17 GM Packet PO SCH (09:57)
[2023-02-03] MEDS: Lisinopril 10 MG TAB PO SCH (20:06)
[2023-02-03] MEDS: Atorvastatin Calcium 10 MG TAB PO SCH (20:06)
[2023-02-03] MEDS: Zolpidem Tartrate 5 MG TAB PO SCH ×2 (20:06→20:09)
[2023-02-03] MEDS: Fenofibrate Nanocrystallized 145 MG TAB PO SCH (20:11)
[2023-02-04] MEDS: Acetaminophen 500 MG TAB PO SCH ×4 (03:52→20:35)
[2023-02-04] MEDS: Neostigmine 0.5 MG in Syringe 0 ML SC SCH (05:20)
[2023-02-04] MEDS ORDERED: Mag-Al 1200 mg/1200 mg/30 ML UDCUP PO PRN (06:42)
[2023-02-04] MEDS: Naloxegol 12.5 MG TAB PO SCH (06:44)
[2023-02-04] MEDS ORDERED: Pantoprazole 40 MG VIAL IVP SCH (06:45)
[2023-02-04 06:57] LABS: #Eosinphils 0.1 thou/uL (0.0-0.7); #Monocytes 1.2 thou/uL (0.11-0.59); #Neutrophils 8.3 thou/uL (1.40-6.50); %Basophils 0.3 % (0.0-1.0); %Eosinophils 1.1 % (0.0-10.0); %Lymphocytes 23.2 % (21.0-51.0); %Monocytes 9.7 % (0.0-10.0); Hematocrit 39.9 % (42.0-52.0); Hemoglobin 13.4 g/dL (14.0-18.0); Mean Corpuscular HGB CONC 33.6 g/dL (32.0-36.0); Mean Corpuscular Volume 89.5 fl (78.0-98.0); Mean Platelet Volume 10.7 fL (7.4-10.4); Platelet Count 191 10x3/uL (130-400); RBC Distribution Width 13.8 % (11.5-14.5); Red Blood Cell (RBC) Count 4.46 mill/uL (4.70-6.10); White Blood Cell (WBC) Count 12.8 10x3/uL (4.8-10.8)
[2023-02-04 07:23] LABS: Anion Gap 13 mmol/L (10-20); BUN (Urea Nitrogen) 23 mg/dL (8.4-25.7); Calc. Creatinine Clearance 55 mL/min (70-130); Calcium 9.1 mg/dL (7.8-10.44); Carbon Dioxide 23 mmol/L (23-31); Chloride 103 mmol/L (98-107); Estimated GFR 62; Glucose 161 mg/dL (83-110); Potassium 3.3 mmol/L (3.5-5.1); Sodium 136 mmol/L (136-145)
[2023-02-04 08:02] LABS: Troponin I 0.043 ng/mL (< 0.028)
[2023-02-04] MEDS ORDERED: Potassium Chloride 20 MEQ TAB PO SCH (10:00)
[2023-02-04] MEDS: glipiZIDE 5 MG TAB PO SCH ×2 (12:34→20:36)
[2023-02-04] MEDS: Cholecalciferol 1,000 UNITS (25 MCG) TAB PO SCH (12:35)
[2023-02-04] MEDS: Cyanocobalamin (Vitamin B-12) 1,000 MCG TAB PO SCH (12:35)
[2023-02-04] MEDS: Multivit, Therapeutic 1 TAB PO SCH (12:35)
[2023-02-04] MEDS: Senokot S 8.6-50 MG TAB PO SCH ×2 (12:36→20:36)
[2023-02-04] MEDS: Polyethylene Glycol 3350 17 GM Packet PO SCH (12:36)
[2023-02-04] MEDS: Ferrous Gluconate 324 MG TAB PO SCH (12:36)
[2023-02-04] MEDS: LevoFLOXacin 750 mg/D5W 750 MG in Premix Bag 1 BAG IVPB SCH (12:37)
[2023-02-04 15:37] LABS: Troponin I 0.031 ng/mL (< 0.028)
[2023-02-04] MEDS: Atorvastatin Calcium 10 MG TAB PO SCH (20:35)
[2023-02-04] MEDS: Lisinopril 10 MG TAB PO SCH (20:36)
[2023-02-04] MEDS: Zolpidem Tartrate 5 MG TAB PO SCH (20:37)
[2023-02-04] MEDS: Fenofibrate Nanocrystallized 145 MG TAB PO SCH (20:39)
[2023-02-05] MEDS: Acetaminophen 500 MG TAB PO SCH ×2 (03:20→10:56)
[2023-02-05 06:36] LABS: #Basophils 0.1 thou/uL (0.0-0.2); #Eosinphils 0.1 thou/uL (0.0-0.7); #Monocytes 1.1 thou/uL (0.11-0.59); #Neutrophils 6.7 thou/uL (1.40-6.50); %Basophils 0.5 % (0.0-1.0); %Eosinophils 1.2 % (0.0-10.0); %Lymphocytes 26.6 % (21.0-51.0); %Monocytes 9.9 % (0.0-10.0); Hematocrit 38.3 % (42.0-52.0); Hemoglobin 12.9 g/dL (14.0-18.0); Mean Corpuscular HGB CONC 33.7 g/dL (32.0-36.0); Mean Corpuscular Hemoglobin 29.7 pg (27.0-31.0); Mean Corpuscular Volume 88.2 fl (78.0-98.0); Mean Platelet Volume 10.8 fL (7.4-10.4); Platelet Count 188 10x3/uL (130-400); RBC Distribution Width 13.7 % (11.5-14.5); Red Blood Cell (RBC) Count 4.34 mill/uL (4.70-6.10); White Blood Cell (WBC) Count 10.9 10x3/uL (4.8-10.8)
[2023-02-05 07:00] LABS: Anion Gap 12 mmol/L (10-20); BUN (Urea Nitrogen) 20 mg/dL (8.4-25.7); Calc. Creatinine Clearance 54 mL/min (70-130); Calcium 9.2 mg/dL (7.8-10.44); Carbon Dioxide 22 mmol/L (23-31); Chloride 106 mmol/L (98-107); Estimated GFR 61; Glucose 209 mg/dL (83-110); Potassium 3.9 mmol/L (3.5-5.1); Sodium 136 mmol/L (136-145)
[2023-02-05] MEDS ORDERED: Pantoprazole 40 MG VIAL IVP SCH (09:00)
[2023-02-05] MEDS: Ferrous Gluconate 324 MG TAB PO SCH (09:24)
[2023-02-05] MEDS: Multivit, Therapeutic 1 TAB PO SCH (09:24)
[2023-02-05] MEDS: Naloxegol 12.5 MG TAB PO SCH (09:24)
[2023-02-05] MEDS: glipiZIDE 5 MG TAB PO SCH (09:25)
[2023-02-05] MEDS: Cholecalciferol 1,000 UNITS (25 MCG) TAB PO SCH (09:25)
[2023-02-05] MEDS: Cyanocobalamin (Vitamin B-12) 1,000 MCG TAB PO SCH (09:25)
[2023-02-05] MEDS: Senokot S 8.6-50 MG TAB PO SCH (10:56)
[2023-02-05] MEDS: Polyethylene Glycol 3350 17 GM Packet PO SCH (10:56)
[2023-02-05] MEDS: LevoFLOXacin 750 mg/D5W 750 MG in Premix Bag 1 BAG IVPB SCH (11:29)
[2023-02-05 12:46] VITALS: BP 131/71; TEMP 97.8
[2023-02-05] MEDS: Insulin Regular 300 UNITS/3 ML VIAL SC PRN (12:56)
== END 2023-02-05 13:00 | disposition home or self-care (01) | DRG 713 ==
LOC: SDC 08:33 → SURG B 12:43
PROVIDERS: ADMIT Urology; ATTEND Internal Medicine
PROC: 0VT08ZZ Resection of Prostate, Via Natural or Artificial Opening Endoscopic (ICD-10-PCS; principal; 2023-01-29)
DX: N40.1 Benign prostatic hyperplasia with lower urinary tract symptoms (principal); I21.A1 Myocardial infarction type 2; J18.9 Pneumonia, unspecified organism; K91.89 Other postprocedural complications and disorders of digestive system; K56.7 Ileus, unspecified; N13.8 Other obstructive and reflux uropathy; N39.0 Urinary tract infection, site not specified; I12.9 Hypertensive chronic kidney disease with stage 1 through stage 4 chronic kidney disease, or unspecified chronic kidney disease; N18.2 Chronic kidney disease, stage 2 (mild); E87.6 Hypokalemia; R26.81 Unsteadiness on feet; E78.5 Hyperlipidemia, unspecified; E11.22 Type 2 diabetes mellitus with diabetic chronic kidney disease; R31.9 Hematuria, unspecified; N32.89 Other specified disorders of bladder; R33.9 Retention of urine, unspecified; F10.90 Alcohol use, unspecified, uncomplicated; F12.90 Cannabis use, unspecified, uncomplicated; D72.829 Elevated white blood cell count, unspecified; Z96.641 Presence of right artificial hip joint; Z98.49 Cataract extraction status, unspecified eye; Z79.899 Other long term (current) drug therapy
CPT/HCPCS: 36415; 36416; 71045; 74018; 76700; 78227; 80048; 80053; 80076; 81001; 82150; 83690; 83735; 84484; 85025; 87040; 87086; 88305; 93005; 93010; A9537; C9113; J0360; J1815; J1956; J2270; J2405; J2704; J2710; J3010; J3480; S0028